=== PATIENT | female | born 1930 | race Caucasian/White ===

== ENCOUNTER 2018-01-20 22:46 | Inpatient (IN) | payer MEDICARE, OTHER ==
[2018-01-21] MEDS ORDERED: Acetaminophen 500 MG TAB ONE (00:25)
[2018-01-21] MEDS ORDERED: Sodium Chloride 0.9% 1,000 ML IV SCH (01:30)
[2018-01-21 02:12] VITALS: BMI 24.5
[2018-01-21] MEDS ORDERED: hydrALAZINE 20 MG/ML VIAL SLOW IVP PRN (02:54)
[2018-01-21] MEDS ORDERED: Calcium Carbonate 500 MG ChewTAB PO PRN (02:55)
[2018-01-21] MEDS ORDERED: Ondansetron ODT 4 MG TAB PO PRN (02:55)
[2018-01-21] MEDS ORDERED: Ondansetron HCl/PF 4 MG/2 ML Vial IVP PRN (02:55)
[2018-01-21] MEDS ORDERED: Senokot 8.6 MG TAB PO PRN (02:55)
--- NOTE | 2018-01-21 04:48 | HP ---
DATE OF ADMISSION: 01/21/2018 The patient was seen and examined on 01/20/2018. PRIMARY CARE PHYSICIAN: Dr. Dejesus at [facility]. Please note that this physician recently retired per patient report. PRIMARY ONCOLOGIST: Dr. Mcwilliams. CHIEF COMPLAINT: Generalized weakness. HISTORY OF PRESENT ILLNESS: Patient is an 87-year-old female with lymphoma, currently on chemotherap y, who presented to the emergency room at [facility]. She was transferred to this facility for hos pital admission. Over the last 24-48 hours, patient has been progressively feeling generally weak. She fell earlier t gary on her dog bed. She had some bruising over the right elbow. She denies any syncope or head inj ury. She felt feverish; however, did not check her temperature. No dysuria, hematuria, urgency, hea dache, altered mentation, back pain, skin rash, cough, shortness of breath, wheezing, nausea, vomitin g, or diarrhea reported. In the emergency room, her initial vital signs showed temperature 101.2, respirations 20, pulse rate of 93 with blood pressure of 151/57. She received vancomycin and cefepime with IV fluids and Tylenol in the emergency room. Blood culture, urinalysis, urine cultures were sent. PAST MEDICAL HISTORY: 1. Hypertension. 2. History of colon cancer, status post surgery and chemotherapy in the year 1999. 3. Lymphoma, currently on chemotherapy, last chemotherapy approximately 1 week ago. PAST SURGICAL HISTORY: 1. Tonsillectomy. 2. Surgery. 3. Right carotid artery surgery in 2015. 4. Colon surgery in 1999. ALLERGIES: Patient is allergic to IODINE, PROTONIX. SOCIAL HISTORY: Patient currently lives at home with her family. No smoking, alcohol, or drug use. She makes her own decision with the help of her family. She is FULL CODE. FAMILY HISTORY: Negative for premature coronary artery disease. REVIEW OF SYSTEMS: The following complete review of systems was negative, unless otherwise mentioned in the HPI or below: Constitutional: Weight loss or gain, ability to conduct usual activities. Sk in: Rash, itching. Eyes: Double vision, pain. ENT/Mouth: Nose bleeding, neck stiffness, pain, te nderness. Cardiovascular: Palpitations, dyspnea on exertion, orthopnea. Respiratory: Shortness of breath, wheezing, cough, hemoptysis, fever or night sweats. Gastrointestinal: Poor appetite, abdom inal pain, heartburn, nausea, vomiting, constipation, or diarrhea. Genitourinary: Urgency, frequenc y, dysuria, nocturia. Musculoskeletal: Pain, swelling. Neurologic/Psychiatric: Anxiety, depressio n. Allergy/Immunologic: Skin rash, bleeding tendency. PHYSICAL EXAMINATION: VITAL SIGNS: As discussed above. GENERAL: An 87-year-old female with fever, chills, and generalized weakness. Ill-appearing. HEENT: Head atraumatic, normocephalic. Sclerae are anicteric. Dry mucous membranes. No oral lesio n. NECK: Supple. No JVD appreciated. No carotid bruit. LUNGS: Clear to auscultation bilaterally. No wheezing, rales, or rhonchi. HEART: S1, S2 present. Regular rate and rhythm. No murmur, rubs, or gallops appreciated. ABDOMEN: Soft, nontender, bowel sounds present. EXTREMITIES: No edema or calf tenderness. NEUROLOGIC: Grossly nonfocal, moves all four extremities. PSYCHIATRY: Alert, awake, oriented x3. SKIN: Warm and dry. LYMPH NODES: No palpable lymph nodes in the neck. PERIPHERAL VASCULAR: Radial pulses palpable bilaterally. MUSCULOSKELETAL: No joint swelling or tenderness. LABORATORY AND DIAGNOSTIC FINDINGS: Chest x-ray by my review was negative for infiltrate. MediPort was noted. WBC count was 0.1 with hemoglobin 9.8, hematocrit 25.8, platelet of 14. Chemistries show ed sodium 137, potassium 3.9, chloride 101, bicarbonate 25, BUN 14, creatinine 0.71. Lactic acid 2.5 . Urinalysis was negative for wbc, bacteria. IMPRESSION: 1. Sepsis with acute organ dysfunction/neutropenic fever. Source is unclear. 2. Pancytopenia, probably secondary to chemotherapy. 3. Lactic acidosis secondary to dehydration and sepsis. 4. Chronic kidney disease, stage 2. 5. Hypertension. 6. Lymphoma, currently on chemotherapy. 7. History of colon cancer. 8. Hypertension. PLAN: The patient will be monitored in the oncology unit. We will continue vancomycin and cefepime. We will consult Infectious Disease as well as Oncology. We will adjust vancomycin dose with close monitoring. We will hold amlodipine due to blood pressure of 123/55. IV fluids. Antibiotics. Plan of care was discussed with the patient in detail. She stated understanding.
[2018-01-21 06:01] LABS: Lactic Acid 1.4 mmol/L (0.5-2.2)
[2018-01-21 06:05] LABS: Hemoglobin 8.8 g/dL (12.0-16.0); Mean Corpuscular HGB CONC 35.7 g/dL (32.0-36.0); Mean Corpuscular Hemoglobin 36.4 pg (27.0-31.0); Mean Platelet Volume 11.6 fL (7.4-10.4); Platelet Count 13 thou/uL (130-400); RBC Distribution Width 11.8 % (11.5-14.5); Red Blood Cell (RBC) Count 2.42 mill/uL (4.20-5.40); White Blood Cell (WBC) Count 0.2 thou/uL (4.8-10.8)
[2018-01-21 06:07] LABS: ALT (SGPT) 14 U/L (8-55); AST (SGOT) 13 U/L (5-34); Albumin 3.1 g/dL (3.4-4.8); Alkaline Phosphatase 56 U/L (40-150); Anion Gap 9 mmol/L (10-20); BUN (Urea Nitrogen) 15 mg/dL (9.8-20.1); Bilirubin, Total 0.6 mg/dL (0.2-1.2); Calc. Creatinine Clearance 54 mL/min (70-130); Calcium 8.5 mg/dL (7.8-10.44); Carbon Dioxide 26 mmol/L (23-31); Chloride 105 mmol/L (98-107); Estimated GFR-MDRD 75; Globulin 2.1 g/dL (2.4-3.5); Glucose 160 mg/dL (83-110); Magnesium 1.7 mg/dL (1.6-2.6); Protein, Total 5.2 g/dL (6.0-8.3); Sodium 136 mmol/L (136-145)
[2018-01-21 06:14] LABS: PLT Morphology Comment Appears Decreased; Reflex for Review?? NO
[2018-01-21] MEDS ORDERED: Cefepime 2 GM in Sodium Chloride 0.9% 100 ML IVPB SCH (06:30)
[2018-01-21] MEDS: Amlodipine 5 MG TAB PO SCH ×2 (08:57→22:46)
[2018-01-21] MEDS: Docusate 100 MG CAP PO SCH ×2 (08:58→22:42)
[2018-01-21] MEDS: Famotidine 20 MG TAB PO SCH (08:58)
--- NOTE | 2018-01-21 11:43 | PDOC.PN ---
- Subjective Encounter Start Date: 01/21/18 Encounter Start Time: 07:00 Pt wilmar for followup re: sepsis. Denies chest pain, shortness of breath. Has occasional cough. Fever+ - Objective Resuscitation Status: Resuscitation Status FULL:Full Resuscitation MAR Reviewed: Yes Vital Signs & Weight: Vital Signs (12 hours) Temp Pulse Resp BP BP BP Pulse Ox 01/21/18 11:24 100.3 F H 84 14 166/67 H 98 01/21/18 08:57 79 131/58 L 01/21/18 08:03 141/83 H 01/21/18 08:00 98.4 F 79 18 131/58 L 97 01/21/18 03:35 97.9 F 73 18 99/49 L 98 01/21/18 02:55 98 01/21/18 01:17 99.3 F 92 20 98 01/21/18 01:05 99.3 F 92 20 123/55 L 98 Weight Weight 138 lb 14.259 oz Result Diagrams: 01/21/18 05:20 01/21/18 05:20 Additional Labs: Labs reviewed by me Phys Exam - Physical Examination Constitutional: NAD HEENT: moist MMs, sclera anicteric, oral pharynx no lesions, 2+ tonsils Neck: supple Respiratory: no wheezing, no rales, no rhonchi, clear to auscultation bilateral Cardiovascular: RRR, no rub S1, S2 Gastrointestinal: soft, non-tender, no distention, positive bowel sounds Neurological: moves all 4 limbs Psychiatric: normal affect, A&O x 3 Dx/Plan (1) Sepsis Code(s): A41.9 - SEPSIS, UNSPECIFIED ORGANISM Status: Acute Comment: secondary to neutropenic fever. (2) Neutropenic fever Code(s): D70.9 - NEUTROPENIA, UNSPECIFIED; R50.81 - FEVER PRESENTING WITH CONDITIONS CLASSIFIED ELSEWHERE Status: Acute Comment: Continue empiric antibiotics, follow cultures (3) Pancytopenia Code(s): D61.818 - OTHER PANCYTOPENIA Status: Acute Comment: due to chemotherapy 1 week ago (4) HTN (hypertension) Code(s): I10 - ESSENTIAL (PRIMARY) HYPERTENSION Status: Chronic Comment: Resume home medications, monitor vital signs and titrate antihypertensives as needed. (5) Lymphoma Status: Chronic Comment: chemotherapy 1 week ago - Plan continue antibiotics, out of bed/ambulate, DVT proph w/SCDs * . Review of Systems - Review of Systems Constitutional: fever. negative: chills, sweats, weakness, malaise Respiratory: Cough, Dry. negative: Shortness of Breath, Hemoptysis, SOB with Excertion, Pleuritic Pain, Sputum, Wheezing Cardiovascular: negative: chest pain, palpitations, orthopnea, paroxysmal nocturnal dyspnea, edema, light headedness Gastrointestinal: negative: Nausea, Vomiting, Abdominal Pain, Diarrhea, Constipation, Melena, Hematochezia Genitourinary: negative: Dysuria, Frequency, Incontinence, Hematuria, Retention - Medications/Allergies Allergies/Adverse Reactions: Allergies Allergy/AdvReac Type Severity Reaction Status Date / Time iodine Allergy Verified 01/21/18 01:57 pantoprazole [From Protonix] Allergy Verified 01/21/18 01:57 povidone-iodine Allergy Verified 01/21/18 01:57 [From Betadine] soap [From Betadine] Allergy Verified 01/21/18 01:57 Medications: Current Medications Acetaminophen (Tylenol) 650 mg PO Q4H PRN PRN Reason: Headache/Fever or Mild Pain Last Admin: 01/21/18 12:17 Dose: 650 mg Amlodipine Besylate (Norvasc) 5 mg PO BID [facility] Last Admin: 01/21/18 08:57 Dose: 5 mg Benzonatate (Tessalon) 100 mg PO TID [facility] Calcium Carbonate (Tums) 1,000 mg PO Q4H PRN PRN Reason: Heartburn or Indigestion Docusate Sodium (Colace) 100 mg PO BID [facility] Last Admin: 01/21/18 08:58 Dose: Not Given Famotidine (Pepcid) 20 mg PO DAILY [facility] Last Admin: 01/21/18 08:58 Dose: Not Given Hydralazine HCl (Apresoline) 5 mg SLOW IVP Q4H PRN PRN Reason: SBP Greater Than 180 Vancomycin HCl 1 gm/ Device 200 mls @ 200 mls/hr IVPB 2000 CONNIE Cefepime HCl 2 gm/ Sodium (Chloride) 100 mls @ 200 mls/hr IVPB 1830 CONNIE Ibuprofen (Motrin) 400 mg PO Q6H PRN PRN Reason: Pain/fever Miscellaneous Medication (Pharmacy To Dose) 1 each IVPB ONE PRN PRN Reason: Pharmacy to dose Stop: 01/31/18 00:39 Ondansetron HCl (Zofran Odt) 4 mg PO Q6H PRN PRN Reason: Nausea/Vomiting Ondansetron HCl (Zofran) 4 mg IVP Q6H PRN PRN Reason: Nausea/Vomiting Senna (Senokot) 2 tab PO HSPRN PRN PRN Reason: Constipation
[2018-01-21] MEDS: Acetaminophen 325 MG TAB PO PRN ×2 (12:17→22:34)
[2018-01-21] MEDS: Benzonatate 100 MG CAP PO SCH ×2 (13:51→22:33)
--- NOTE | 2018-01-21 17:10 | CON ---
DATE OF CONSULTATION: 01/21/2018 REASON FOR CONSULTATION: Neutropenia with fever. HISTORY OF PRESENT ILLNESS: An 87-year-old first admission to this hospital who has a history of darlin rly recently diagnosed lymphoma. Apparently, the patient had a bone marrow. She denied that she james r had a lymph node biopsy, so it is not clear how the lymphoma diagnosis was established, if through bone marrow or peripheral blood flow cytometry or needle aspirate. She does not recall any such proc edure. Nonetheless, patient has been receiving chemotherapy through a port inserted in [place] by a surgeon at the beginning of this treatment, she has received I think is the fourth course of chemo therapy and apparently fell down and was brought to the emergency room where she was found to be febr ile and somewhat hypotensive, was transferred over here for further management. On arrival, BP 150/7 0, pulse 93 and temperature 101.2, respirations 20. She did not appear in distress. Lungs and heart exam were normal. Abdomen is nontender. Port site was not abnormal. Chest x-ray with no evidence of infiltrates. WBC count 0.1, hemoglobin 9.8, platelets 14, creatinine was 0.71. Lactic acid 2.5. The patient has been started on cefepime and vancomycin. REVIEW OF SYSTEMS: Currently, she is awake and alert. Denies headaches, visual symptoms, sore throa t, odynophagia, dysphagia, no back pain, no port pain. No other joint symptoms. A little bit of cou gh which is mostly dry. No chest pain, no dyspnea, no abdominal pain or diarrhea, no genitourinary s ymptoms. No neurological symptoms. PAST MEDICAL HISTORY: Colon cancer in remission after resection and chemotherapy. Currently managed lymphoma with chemotherapy. It is not clear what the cell type and stage and also hypertension. PAST SURGICAL HISTORY: Tonsillectomy, carotid artery, endarterectomy and partial colon resection in 1999. ALLERGIES: IODINE and PROTONIX. SOCIAL HISTORY: Lives at [place]. She is retired from [employer], fairly independent living conditions until this. Never smoker. FAMILY HISTORY: Noncontributory. PHYSICAL EXAMINATION: VITAL SIGNS: T-max 100.3, currently 98.4, BP 120/58, pulse 88, respirations 14-20, O2 saturation 98% . SKIN: Examination shows the port site without any inflammatory changes. Port is accessed at this ti me. No Truong catheter. Patient is voiding spontaneously. No lymphadenopathy alopecia from chemothe rapy. HEENT: Ocular movements conjugate. Pale Conjunctivae noninjected. Ear and NOSE: Normal. Oral cav ity unremarkable. NECK: Supple. LUNGS: With symmetric clear breath sounds. CARDIOVASCULAR: S1, S2, regular rate. No S3, S4. ABDOMEN: Soft and not distended or tender. No ascites. No bladder distention. No organomegaly. EXTREMITIES: No joint inflammatory activity. Pulses 1+ dorsalis pedis. Plantar responses are flexu re, moves all extremities equally. NEUROLOGIC: Cognitive function appears to be intact. LABORATORY DATA: White cell count 0.2, hemoglobin 8.8, MCV 102, platelets 13,000 and chemistry fairl y unremarkable. Phosphorus 2.0. Liver profile normal. Albumin 3.1 and all the cultures are pending . ASSESSMENT: Lymphoma, on treatment with unknown regimen through a port now with neutropenic fever. The patient has little bit of cough, but no infiltrates seen on the x-ray. DISCUSSION: The most likely scenario is respiratory tract infection associated with neutropenia. Co ntinue cefepime and vancomycin. I do not expect a protracted course should it respond quickly as robyn n as the white cell count started going up, should see a resolution of temperature increases. If the blood cultures remain negative, then could transition to oral antimicrobial therapy, either quinolon e or a beta lactam for discharge planning at that time and the other hand, if things continue to comp licate, then we will have to reassess maybe start antifungal therapy and so on.
[2018-01-21] MEDS: Cefepime 2 GM in Sodium Chloride 0.9% 100 ML IVPB SCH (18:28)
[2018-01-21 18:52] LABS: Vancomycin, Trough 4.1 ug/mL
[2018-01-21] MEDS ORDERED: Vancomycin HCl 1 GM in Premix Bag 1 BAG IVPB SCH ×2 (20:00→23:00)
[2018-01-21] MEDS: Diabetic Tussin 200 MG/10 ML UDCUP PO PRN (22:24)
[2018-01-21] MEDS: Ibuprofen 200 MG TAB PO PRN (22:38)
--- NOTE | 2018-01-22 01:31 | CON ---
DATE OF ADMISSION: 01/21/2018 DATE OF CONSULTATION: 01/21/2018 HISTORY OF PRESENT ILLNESS: Ms. Keller is an 87-year-old female with a long history of lymphoma being t reated by Dr. Mckinney out of [place] with chemotherapy. She is unsure of the name of the chemothera py, but she says she received her last cycle approximately 1 week ago. She was at home prior to this admission and leaned over to help her dog do something and she fell. She had bruising and bleeding of her right elbow and was transferred to the emergency room. She did report feeling quite weak, but she did not feel feverish. She was noted to have a temperature of 101 in the emergency room and was transferred here for febrile neutropenia. She has not had fever while she has been in the hospital. She is feeling much stronger since getting IV fluids and IV antibiotics. She denies shortness of b reath and otherwise feels much better. PAST MEDICAL HISTORY: 1. Lymphoma, recent chemotherapy, I am not sure what type of lymphoma she has. 2. Hypertension. 3. History of colorectal cancer status post surgery, chemotherapy, and radiation in 1999. CURRENT MEDICATIONS: 1. Tylenol p.r.n. 2. Norvasc 5 mg p.o. b.i.d. and 10 mg p.o. q. day. 3. Tessalon 100 mg p.o. t.i.d. 4. Tums 1000 mg p.o. q.4 hours. 5. Cefepime 2 grams IV q.8 hours. 6. Colace p.r.n. 7. Pepcid 20 mg p.o. q. day. 8. Hydralazine p.r.n. 9. Ibuprofen 400 mg p.o. q.6 hours p.r.n. 10. Zofran 4 mg p.o. q.6 hours p.r.n. 11. Senokot p.r.n. 12. Vancomycin 1 gram IV q.12 hours. ALLERGIES: IODINE, PANTOPRAZOLE, and SOAP. SOCIAL HISTORY: She lives in [place]. Denies tobacco or alcohol use. She is here alone. FAMILY HISTORY: Negative. REVIEW OF SYSTEMS: Otherwise, 10-point review of systems is negative and she was tolerated the chemo therapy well. PHYSICAL EXAMINATION: VITAL SIGNS: Temperature 98.3, T-max 100.3, pulse 85, respirations 14, O2 sat 93%-98% on room air, b lood pressure 122/56. GENERAL: She is quite pleasant, in no acute distress. HEENT: Extraocular muscles are intact. Pupils reactive to light. She has no oral cavity lesions. NECK: Supple. She does have a right lower cervical 3 cm lymph node which is palpable. CARDIOVASCULAR: Regular rhythm. LUNGS: Clear to auscultation bilaterally. ABDOMEN: Hypoactive bowel sounds. Soft, nontender, nondistended. EXTREMITIES: No edema. LABORATORY DATA: White blood cell count 0.2, hemoglobin 8.8, platelets 13,000. Sodium 136, potassiu m 4.0, chloride 105, CO2 of 26, BUN 15, creatinine 0.7, glucose 160, calcium 8.5, phos 2.0, mag 1.7, albumin 3.1. Cultures are pending. ASSESSMENT: Ms. Keller is a 87-year-old female with lymphoma and 1. Febrile neutropenia. 2. Thrombocytopenia. 3. Weakness status post fall. PLAN: 1. We discussed that her blood counts are too low for her to currently be discharged, but surely the y will start to rise in the next few days. I am not sure if she got any last, we will hope to get [facility] records to find out what growth factor she has had. 2. We will give her a platelet transfusion if she has not already had one. 3. She is on cefepime and vancomycin, these will be continued. 4. We will check her Norvasc dose. 5. Follow up blood and urine cultures.
[2018-01-22] MEDS: guaiFENesin/Codeine Phosphate 200 mg/20 mg 10 ml UD Cup PO PRN ×2 (03:18→15:12)
[2018-01-22 04:04] LABS: White Blood Cell (WBC) Count 0.4 thou/uL (4.8-10.8)
[2018-01-22 04:05] LABS: Hemoglobin 7.1 g/dL (12.0-16.0); Mean Corpuscular HGB CONC 36.5 g/dL (32.0-36.0); Mean Corpuscular Hemoglobin 36.9 pg (27.0-31.0); Platelet Count 33 thou/uL (130-400); RBC Distribution Width 11.4 % (11.5-14.5); Red Blood Cell (RBC) Count 1.91 mill/uL (4.20-5.40)
[2018-01-22 04:06] LABS: PLT Morphology Comment Appears Decreased; RBC Morphology Normal
[2018-01-22 04:11] LABS: ALT (SGPT) 21 U/L (8-55); AST (SGOT) 22 U/L (5-34); Albumin 2.9 g/dL (3.4-4.8); Alkaline Phosphatase 83 U/L (40-150); Anion Gap 10 mmol/L (10-20); BUN (Urea Nitrogen) 12 mg/dL (9.8-20.1); Bilirubin, Total 0.9 mg/dL (0.2-1.2); Calc. Creatinine Clearance 58 mL/min (70-130); Calcium 8.6 mg/dL (7.8-10.44); Carbon Dioxide 24 mmol/L (23-31); Chloride 104 mmol/L (98-107); Estimated GFR-MDRD 82; Globulin 2.3 g/dL (2.4-3.5); Glucose 135 mg/dL (83-110); Magnesium 1.4 mg/dL (1.6-2.6); Protein, Total 5.2 g/dL (6.0-8.3); Sodium 135 mmol/L (136-145)
[2018-01-22 04:28] LABS: Phosphorus 1.8 mg/dL (2.3-4.7)
[2018-01-22] MEDS: Docusate 100 MG CAP PO SCH ×2 (08:39→20:13)
[2018-01-22] MEDS: Benzonatate 100 MG CAP PO SCH ×3 (08:39→20:13)
[2018-01-22] MEDS: Amlodipine 10 MG TAB PO SCH (08:39)
[2018-01-22] MEDS: Diabetic Tussin 200 MG/10 ML UDCUP PO PRN (08:48)
--- NOTE | 2018-01-22 12:00 | PDOC.PN ---
- Subjective Encounter Start Date: 01/22/18 Encounter Start Time: 07:00 Pt seen for followup re:neutropenic fever. Denies chest pain or shortness of breath. Cough+. No fevers. - Objective Resuscitation Status: Resuscitation Status FULL:Full Resuscitation MAR Reviewed: Yes Vital Signs & Weight: Vital Signs (12 hours) Temp Pulse Resp BP Pulse Ox 01/22/18 10:20 68 16 01/22/18 08:39 84 01/22/18 08:00 97.8 F 84 18 92 L 01/22/18 07:27 97.8 F 84 18 102/44 L 92 L 01/22/18 07:25 97.8 F 84 18 102/44 L 92 L 01/22/18 06:20 66 12 01/22/18 02:51 64 16 98 Weight Weight 138 lb 14.259 oz I&O: 01/21/18 01/22/18 01/23/18 06:59 06:59 06:59 Intake Total 1550 Output Total 600 Balance 950 Result Diagrams: 01/22/18 03:40 01/22/18 03:40 Additional Labs: Labs reviewed by me Phys Exam - Physical Examination Constitutional: NAD HEENT: moist MMs, sclera anicteric, oral pharynx no lesions, 2+ tonsils pallor+ Neck: no JVD, supple, full ROM Respiratory: clear to auscultation bilateral Cardiovascular: RRR, no rub S1, S2 Gastrointestinal: soft, non-tender, no distention, positive bowel sounds Neurological: moves all 4 limbs Psychiatric: normal affect, A&O x 3 Dx/Plan (1) Neutropenic fever Code(s): D70.9 - NEUTROPENIA, UNSPECIFIED; R50.81 - FEVER PRESENTING WITH CONDITIONS CLASSIFIED ELSEWHERE Status: Acute Comment: Probable pulmonary source. Continue cefepime and vancomycin IV, follow cultures. (2) Pancytopenia Code(s): D61.818 - OTHER PANCYTOPENIA Status: Acute Comment: Due to chemotherapy 1 week ago (3) HTN (hypertension) Code(s): I10 - ESSENTIAL (PRIMARY) HYPERTENSION Status: Chronic Comment: Controlled (4) Lymphoma Status: Chronic Comment: chemotherapy 1 week ago (5) Sepsis Code(s): A41.9 - SEPSIS, UNSPECIFIED ORGANISM Status: Resolved - Plan * . Review of Systems - Review of Systems Constitutional: weakness. negative: fever, chills, sweats, malaise Respiratory: Cough, Dry. negative: Shortness of Breath, Hemoptysis, SOB with Excertion, Pleuritic Pain, Sputum, Wheezing Cardiovascular: negative: chest pain, palpitations, orthopnea, paroxysmal nocturnal dyspnea, edema, light headedness Genitourinary: Other. negative: Dysuria, Frequency, Incontinence, Hematuria, Retention Skin: negative: Rash, Lesions, Reji, Bruising - Medications/Allergies Allergies/Adverse Reactions: Allergies Allergy/AdvReac Type Severity Reaction Status Date / Time iodine Allergy Verified 01/21/18 01:57 pantoprazole [From Protonix] Allergy Verified 01/21/18 01:57 povidone-iodine Allergy Verified 01/21/18 01:57 [From Betadine] soap [From Betadine] Allergy Verified 01/21/18 01:57 Medications: Current Medications Acetaminophen (Tylenol) 650 mg PO Q4H PRN PRN Reason: Headache/Fever or Mild Pain Last Admin: 01/21/18 22:34 Dose: 650 mg Albuterol/Ipratropium (Duoneb) 3 ml NEB [id number] [facility] Last Admin: 01/22/18 10:20 Dose: 3 ml Amlodipine Besylate (Norvasc) 10 mg PO DAILY [facility] Last Admin: 01/22/18 08:39 Dose: 10 mg Benzonatate (Tessalon) 100 mg PO TID [facility] Last Admin: 01/22/18 08:39 Dose: 100 mg Calcium Carbonate (Tums) 1,000 mg PO Q4H PRN PRN Reason: Heartburn or Indigestion Docusate Sodium (Colace) 100 mg PO BID [facility] Last Admin: 01/22/18 08:39 Dose: 100 mg Famotidine (Pepcid) 20 mg PO DAILY [facility] Last Admin: 01/21/18 08:58 Dose: Not Given Guaifenesin (Robitussin Sf) 200 mg PO TIDPRN PRN PRN Reason: Cough Last Admin: 01/22/18 08:48 Dose: 200 mg Guaifenesin/Codeine Phosphate (Robitussin Ac) 5 ml PO BIDPRN PRN PRN Reason: Cough Last Admin: 01/22/18 03:18 Dose: 5 ml Hydralazine HCl (Apresoline) 5 mg SLOW IVP Q4H PRN PRN Reason: SBP Greater Than 180 Cefepime HCl 2 gm/ Sodium (Chloride) 100 mls @ 200 mls/hr IVPB 1830 CONNIE Last Admin: 01/21/18 18:28 Dose: 100 mls Vancomycin HCl 1 gm/ Device 200 mls @ 200 mls/hr IVPB 2300 [facility] Last Admin: 01/21/18 22:41 Dose: 200 mls Ibuprofen (Motrin) 400 mg PO Q6H PRN PRN Reason: Pain/fever Last Admin: 01/21/18 22:38 Dose: 400 mg Miscellaneous Medication (Pharmacy To Dose) 1 each IVPB ONE PRN PRN Reason: Pharmacy to dose Stop: 01/31/18 00:39 Miscellaneous Medication (Phos-Nak) 1 pkt PO TID [facility] Stop: 01/23/18 09:00 Last Admin: 01/22/18 08:42 Dose: 1 pkt Ondansetron HCl (Zofran Odt) 4 mg PO Q6H PRN PRN Reason: Nausea/Vomiting Ondansetron HCl (Zofran) 4 mg IVP Q6H PRN PRN Reason: Nausea/Vomiting Senna (Senokot) 2 tab PO HSPRN PRN PRN Reason: Constipation
[2018-01-22] MEDS: Potassium Chloride 20 MEQ TAB PO SCH ×2 (15:12→20:13)
[2018-01-22] MEDS: Famotidine 20 MG TAB PO SCH (15:19)
[2018-01-22] MEDS ORDERED: guaiFENesin/Codeine Phosphate 200 mg/20 mg 10 ml UD Cup PO PRN (15:25)
[2018-01-22] MEDS: Cefepime 2 GM in Sodium Chloride 0.9% 100 ML IVPB SCH (17:31)
[2018-01-22] MEDS: Acetaminophen 325 MG TAB PO PRN (17:37)
[2018-01-23] MEDS: Acetaminophen 325 MG TAB PO PRN ×2 (04:06→16:20)
[2018-01-23] MEDS: Cepastat Lozenges 1 LOZ PO PRN ×2 (04:55→12:52)
[2018-01-23 08:55] LABS: Platelet Count 24 thou/uL (130-400); White Blood Cell (WBC) Count 0.3 thou/uL (4.8-10.8)
[2018-01-23 09:03] LABS: Anion Gap 12 mmol/L (10-20); BUN (Urea Nitrogen) 9 mg/dL (9.8-20.1); Calc. Creatinine Clearance 60 mL/min (70-130); Calcium 8.5 mg/dL (7.8-10.44); Carbon Dioxide 23 mmol/L (23-31); Chloride 105 mmol/L (98-107); Estimated GFR-MDRD 85; Glucose 134 mg/dL (83-110); Potassium 4.3 mmol/L (3.5-5.1); Sodium 136 mmol/L (136-145)
[2018-01-23] MEDS: Amlodipine 10 MG TAB PO SCH (09:12)
[2018-01-23] MEDS: Docusate 100 MG CAP PO SCH ×3 (09:13→20:30)
[2018-01-23] MEDS: Benzonatate 100 MG CAP PO SCH ×3 (09:13→20:30)
[2018-01-23] MEDS: Famotidine 20 MG TAB PO SCH (09:14)
[2018-01-23 09:18] LABS: Hemoglobin 7.8 g/dL (12.0-16.0); Mean Corpuscular HGB CONC 35.4 g/dL (32.0-36.0); Mean Corpuscular Hemoglobin 36.5 pg (27.0-31.0); Mean Platelet Volume 9.9 fL (7.4-10.4); RBC Distribution Width 11.7 % (11.5-14.5); Red Blood Cell (RBC) Count 2.14 mill/uL (4.20-5.40)
[2018-01-23 09:47] LABS: MDiff Complete? YES; PLT Morphology Comment Appears Decreased; Polychromasia SLIGHT = 2-3 cells (100X) (0-2/hpf)
--- NOTE | 2018-01-23 11:49 | PDOC.PN ---
- Subjective Encounter Start Date: 01/23/18 Encounter Start Time: 07:00 Pt seen for followup re: febrile neutropenia. Denies chest pain. Cough better. - Objective Resuscitation Status: Resuscitation Status FULL:Full Resuscitation MAR Reviewed: Yes Vital Signs & Weight: Vital Signs (12 hours) Temp Pulse Resp BP Pulse Ox 01/23/18 11:19 76 12 01/23/18 09:12 76 01/23/18 08:13 75 12 01/23/18 08:00 98 F 76 18 01/23/18 07:30 98.0 F 76 18 107/54 L 97 01/23/18 03:57 98.9 F 90 16 115/82 97 01/23/18 02:42 97 01/23/18 02:07 12 Weight Weight 138 lb 14.259 oz I&O: 01/22/18 01/23/18 01/24/18 06:59 06:59 06:59 Intake Total 1550 1690 Output Total 600 Balance 950 1690 Result Diagrams: 01/23/18 08:35 01/23/18 08:35 Additional Labs: labs reviewed by me Phys Exam - Physical Examination Constitutional: NAD HEENT: moist MMs, sclera anicteric, oral pharynx no lesions, 2+ tonsils Neck: supple Respiratory: no wheezing, no rales, no rhonchi, clear to auscultation bilateral Cardiovascular: RRR, no rub S1, S2 Gastrointestinal: soft, non-tender, no distention, positive bowel sounds Neurological: moves all 4 limbs Psychiatric: normal affect, A&O x 3 Dx/Plan (1) Neutropenic fever Code(s): D70.9 - NEUTROPENIA, UNSPECIFIED; R50.81 - FEVER PRESENTING WITH CONDITIONS CLASSIFIED ELSEWHERE Status: Acute Comment: Continue cefepime and vancomycin IV, follow cultures. (2) Pancytopenia Code(s): D61.818 - OTHER PANCYTOPENIA Status: Acute Comment: Follow blood counts (3) HTN (hypertension) Code(s): I10 - ESSENTIAL (PRIMARY) HYPERTENSION Status: Chronic Comment: Controlled (4) Lymphoma Status: Chronic Comment: s/p chemotherapy at [place] (5) Sepsis Code(s): A41.9 - SEPSIS, UNSPECIFIED ORGANISM Status: Resolved - Plan * . Review of Systems - Review of Systems Constitutional: negative: fever, chills, sweats, weakness, malaise Respiratory: Cough, Dry. negative: Shortness of Breath, Hemoptysis, Pleuritic Pain, Sputum, Wheezing Cardiovascular: negative: chest pain, palpitations, edema, light headedness Gastrointestinal: negative: Nausea, Vomiting, Abdominal Pain, Diarrhea, Constipation, Melena, Hematochezia Genitourinary: negative: Dysuria, Frequency, Incontinence, Hematuria, Retention Skin: negative: Rash, Lesions, Reji, Bruising - Medications/Allergies Allergies/Adverse Reactions: Allergies Allergy/AdvReac Type Severity Reaction Status Date / Time iodine Allergy Verified 01/21/18 01:57 pantoprazole [From Protonix] Allergy Verified 01/21/18 01:57 povidone-iodine Allergy Verified 01/21/18 01:57 [From Betadine] soap [From Betadine] Allergy Verified 01/21/18 01:57 Medications: Current Medications Acetaminophen (Tylenol) 650 mg PO Q4H PRN PRN Reason: Headache/Fever or Mild Pain Last Admin: 01/23/18 04:06 Dose: 650 mg Albuterol/Ipratropium (Duoneb) 3 ml NEB [id number] [facility] Last Admin: 01/23/18 11:19 Dose: 3 ml Amlodipine Besylate (Norvasc) 10 mg PO DAILY [facility] Last Admin: 01/23/18 09:12 Dose: 10 mg Benzonatate (Tessalon) 100 mg PO TID [facility] Last Admin: 01/23/18 09:13 Dose: 100 mg Calcium Carbonate (Tums) 1,000 mg PO Q4H PRN PRN Reason: Heartburn or Indigestion Docusate Sodium (Colace) 100 mg PO BID [facility] Last Admin: 01/23/18 09:13 Dose: Not Given Famotidine (Pepcid) 20 mg PO DAILY [facility] Last Admin: 01/23/18 09:14 Dose: 20 mg Guaifenesin (Robitussin Sf) 200 mg PO TIDPRN PRN PRN Reason: Cough Last Admin: 01/22/18 08:48 Dose: 200 mg Guaifenesin (Mucinex) 600 mg PO Q12HR [facility] Guaifenesin/Codeine Phosphate (Robitussin Ac) 10 ml PO Q6H PRN PRN Reason: Cough Hydralazine HCl (Apresoline) 5 mg SLOW IVP Q4H PRN PRN Reason: SBP Greater Than 180 Cefepime HCl 2 gm/ Sodium (Chloride) 100 mls @ 200 mls/hr IVPB 1830 [facility] Last Admin: 01/22/18 17:31 Dose: 100 mls Ibuprofen (Motrin) 400 mg PO Q6H PRN PRN Reason: Pain/fever Last Admin: 01/21/18 22:38 Dose: 400 mg Ondansetron HCl (Zofran Odt) 4 mg PO Q6H PRN PRN Reason: Nausea/Vomiting Ondansetron HCl (Zofran) 4 mg IVP Q6H PRN PRN Reason: Nausea/Vomiting Senna (Senokot) 2 tab PO HSPRN PRN PRN Reason: Constipation Throat Lozenges (Cepastat Lozenges) 1 charmaine PO Q2H PRN PRN Reason: SORE THROAT/ COUGH Last Admin: 01/23/18 04:55 Dose: 1 charmaine
[2018-01-23] MEDS ORDERED: guaiFENesin ER 600 MG TAB PO SCH (12:45)
--- NOTE | 2018-01-23 14:19 | PRG ---
DATE OF SERVICE: 01/23/2018 SUBJECTIVE: Coughing more frequently than previously. No sputum production. No headaches, no chest pain, no abdominal pain or diarrhea. No neurological symptoms. OBJECTIVE: VITAL SIGNS: T-max 98.9, BP 120/58, pulse 95, respirations 18, O2 sat 92%. GENERAL: Chronically ill appearing, in no distress, oriented. HEENT: Ocular movements conjugate. Pale conjunctivae. LUNGS: With quite prominent inspiratory crackles, right and left base. CARDIOVASCULAR: S1, S2, regular rate without murmurs. ABDOMEN: Soft and not distended or tender. LABORATORY DATA: White cell count 0.3, hemoglobin 7.8, MCV 103, platelets 24. Sodium 136, creatinin e 0.66 and we have 1 set out of 2 positive with E. coli from blood cultures obtained from 01/20/2018. The organism is resistant to quinolones, susceptible to cephalosporins. Urine culture, no growth a t 48 hours. ASSESSMENT AND DISCUSSION: Lymphoma, on treatment with chemotherapy through [place], now with neutropen ia and fever and Escherichia coli bacteremia, appears to be transient bacteremia. Now, she has abnor mal lung exam. This could be secondary to the bacteremia either from direct infection or from just c apillary leak and interstitial infiltrates. We will repeat chest x-ray. Continue cefepime. Wait fo r recovery of white cell count. The origin of the bacteremia could be gastrointestinal tract or resp iratory tract, urinary tract or biliary tract not likely.
--- NOTE | 2018-01-23 15:15 | RAD ---
CHEST 1 VIEW: HISTORY: Neutropenia. Abnormal breath sounds. COMPARISON: 01/20/18. FINDINGS: Cardiac silhouette is magnified and upper limits of normal in size. Pulmonary vasculature upper limi ts of normal. Mediastinum is midline with aortic calcification and a right-sided Port-A-Cath in plac e. No lobar consolidation or evidence of pneumothorax. IMPRESSION: 1. Borderline pulmonary vascular congestion. 2. Atherosclerosis. POS: [facility]
[2018-01-23] MEDS: Cefepime 2 GM in Sodium Chloride 0.9% 100 ML IVPB SCH (19:09)
[2018-01-23] MEDS: guaiFENesin ER 600 MG TAB PO SCH (20:31)
[2018-01-24 04:46] LABS: Anion Gap 11 mmol/L (10-20); BUN (Urea Nitrogen) 10 mg/dL (9.8-20.1); Calc. Creatinine Clearance 63 mL/min (70-130); Calcium 8.6 mg/dL (7.8-10.44); Carbon Dioxide 24 mmol/L (23-31); Chloride 103 mmol/L (98-107); Estimated GFR-MDRD 89; Glucose 109 mg/dL (83-110); Potassium 4.4 mmol/L (3.5-5.1); Sodium 134 mmol/L (136-145)
[2018-01-24 04:53] LABS: White Blood Cell (WBC) Count 0.4 thou/uL (4.8-10.8)
[2018-01-24 05:41] LABS: Hemoglobin 7.6 g/dL (12.0-16.0); MDiff Complete? YES; Macrocytosis SLIGHT = 6-15 cells (100X) (0-5/hpf); Mean Corpuscular HGB CONC 35.2 g/dL (32.0-36.0); Mean Corpuscular Hemoglobin 36.3 pg (27.0-31.0); Mean Platelet Volume 9.4 fL (7.4-10.4); PLT Morphology Comment Appears Decreased; Platelet Count 56 thou/uL (130-400); RBC Distribution Width 11.9 % (11.5-14.5); Red Blood Cell (RBC) Count 2.08 mill/uL (4.20-5.40)
[2018-01-24] MEDS: guaiFENesin ER 600 MG TAB PO SCH ×4 (08:32→20:19)
[2018-01-24] MEDS: Famotidine 20 MG TAB PO SCH (08:32)
[2018-01-24] MEDS: Benzonatate 100 MG CAP PO SCH ×3 (08:32→20:20)
[2018-01-24] MEDS: Docusate 100 MG CAP PO SCH ×2 (08:33→20:19)
[2018-01-24] MEDS: Amlodipine 10 MG TAB PO SCH (08:33)
--- NOTE | 2018-01-24 11:00 | PDOC.PN ---
- Subjective Encounter Start Date: 01/24/18 Encounter Start Time: 07:20 Pt seen for followup re: febrile neutropenia. Cough improved with Mucinex. No fevers or chills. - Objective Resuscitation Status: Resuscitation Status FULL:Full Resuscitation MAR Reviewed: Yes Vital Signs & Weight: Vital Signs (12 hours) Temp Pulse Resp BP Pulse Ox 01/24/18 08:33 85 01/24/18 08:00 98.9 F 85 16 01/24/18 07:25 98.9 F 85 16 113/55 L 96 01/24/18 06:27 78 16 01/24/18 03:32 99.8 F H 97 16 122/60 97 01/24/18 02:31 12 01/24/18 00:46 96 01/23/18 23:38 98.7 F 87 16 107/55 L 97 Weight Weight 138 lb 14.259 oz I&O: 01/23/18 01/24/18 01/25/18 06:59 06:59 06:59 Intake Total 1690 1986 Balance 1690 1986 Result Diagrams: 01/24/18 03:52 01/24/18 03:52 Additional Labs: Labs reviewed by me Phys Exam - Physical Examination Constitutional: NAD HEENT: moist MMs, sclera anicteric, oral pharynx no lesions, 2+ tonsils Neck: no nodes, no JVD, supple, full ROM Respiratory: no wheezing, no rhonchi R basal crackles Cardiovascular: RRR, no rub S1, S2 Gastrointestinal: soft, non-tender, no distention, positive bowel sounds Neurological: moves all 4 limbs Psychiatric: normal affect, A&O x 3 Dx/Plan (1) Neutropenic fever Code(s): D70.9 - NEUTROPENIA, UNSPECIFIED; R50.81 - FEVER PRESENTING WITH CONDITIONS CLASSIFIED ELSEWHERE Status: Acute Comment: Continue IV cefepime (2) Pancytopenia Code(s): D61.818 - OTHER PANCYTOPENIA Status: Acute Comment: Follow blood counts (3) HTN (hypertension) Code(s): I10 - ESSENTIAL (PRIMARY) HYPERTENSION Status: Chronic Comment: Controlled and at goal (4) Lymphoma Status: Chronic Comment: s/p chemotherapy at [place], await records (5) Sepsis Code(s): A41.9 - SEPSIS, UNSPECIFIED ORGANISM Status: Resolved - Plan * . Review of Systems - Review of Systems Constitutional: negative: fever, chills, sweats, weakness, malaise Respiratory: Cough, Dry. negative: Shortness of Breath, SOB with Excertion, Pleuritic Pain, Sputum, Wheezing Cardiovascular: negative: chest pain, palpitations, orthopnea, paroxysmal nocturnal dyspnea, edema, light headedness Gastrointestinal: negative: Nausea, Vomiting, Abdominal Pain, Diarrhea, Constipation, Melena, Hematochezia Genitourinary: negative: Dysuria, Frequency, Incontinence, Hematuria, Retention Skin: negative: Rash, Lesions, Reji, Bruising - Medications/Allergies Allergies/Adverse Reactions: Allergies Allergy/AdvReac Type Severity Reaction Status Date / Time iodine Allergy Verified 01/21/18 01:57 pantoprazole [From Protonix] Allergy Verified 01/21/18 01:57 povidone-iodine Allergy Verified 01/21/18 01:57 [From Betadine] soap [From Betadine] Allergy Verified 01/21/18 01:57 Medications: Current Medications Acetaminophen (Tylenol) 650 mg PO Q4H PRN PRN Reason: Headache/Fever or Mild Pain Last Admin: 01/23/18 16:20 Dose: 650 mg Albuterol/Ipratropium (Duoneb) 3 ml NEB [id number] [facility] Last Admin: 01/24/18 06:27 Dose: 3 ml Amlodipine Besylate (Norvasc) 10 mg PO DAILY [facility] Last Admin: 01/24/18 08:33 Dose: 10 mg Benzonatate (Tessalon) 100 mg PO TID [facility] Last Admin: 01/24/18 08:32 Dose: 100 mg Calcium Carbonate (Tums) 1,000 mg PO Q4H PRN PRN Reason: Heartburn or Indigestion Docusate Sodium (Colace) 100 mg PO BID [facility] Last Admin: 01/24/18 08:33 Dose: 100 mg Famotidine (Pepcid) 20 mg PO DAILY [facility] Last Admin: 01/24/18 08:32 Dose: 20 mg Guaifenesin (Mucinex) 600 mg PO TID [facility] Guaifenesin/Codeine Phosphate (Robitussin Ac) 10 ml PO Q6H PRN PRN Reason: Cough Hydralazine HCl (Apresoline) 5 mg SLOW IVP Q4H PRN PRN Reason: SBP Greater Than 180 Cefepime HCl 2 gm/ Sodium (Chloride) 100 mls @ 200 mls/hr IVPB 1830 [facility] Last Admin: 01/23/18 19:09 Dose: 100 mls Ibuprofen (Motrin) 400 mg PO Q6H PRN PRN Reason: Pain/fever Last Admin: 01/21/18 22:38 Dose: 400 mg Ondansetron HCl (Zofran Odt) 4 mg PO Q6H PRN PRN Reason: Nausea/Vomiting Ondansetron HCl (Zofran) 4 mg IVP Q6H PRN PRN Reason: Nausea/Vomiting Senna (Senokot) 2 tab PO HSPRN PRN PRN Reason: Constipation Sodium Chloride (Flush - Normal Saline) 10 ml IVF Q12HR [facility] Last Admin: 01/24/18 08:37 Dose: 10 ml Sodium Chloride (Flush - Normal Saline) 10 ml IVF PRN PRN PRN Reason: Saline Flush Throat Lozenges (Cepastat Lozenges) 1 charmaine PO Q2H PRN PRN Reason: SORE THROAT/ COUGH Last Admin: 01/23/18 12:52 Dose: 1 charmaine
[2018-01-24] MEDS: Acetaminophen 325 MG TAB PO PRN (17:02)
[2018-01-24] MEDS: Micafungin 100 MG in Sodium Chloride 0.9% 100 ML IVPB SCH (17:36)
[2018-01-24] MEDS: Cefepime 2 GM in Sodium Chloride 0.9% 100 ML IVPB SCH (19:12)
--- NOTE | 2018-01-24 19:39 | PRG ---
DATE OF SERVICE: 01/24/2018 SUBJECTIVE: Awake, bothered by the repeated coughing spells, which cause rib cage pain. No sputum p roduction. No dyspnea. No abdominal pain or diarrhea. No genitourinary symptoms. PHYSICAL EXAMINATION: VITAL SIGNS: T-max 100.7, respiratory rate 16, pulse 92, respirations 132/63. GENERAL: Awake and alert. LUNGS: Symmetric air entry, clear than previously. HEART: S1 and S2, no murmurs. ABDOMEN: No abdominal tenderness or distention. LABORATORY DATA: White cell count 0.4, platelets 56, hemoglobin 7.6. Chemistry not remarkable. E. coli retrieved from blood culture. ASSESSMENT AND DISCUSSION: Lymphoma, on treatment with chemotherapy through [place], now with neutrop enia and fever, Escherichia coli bacteremia on proper antimicrobial therapy, now with recrudescence o f fever. This is the fourth day and we will go ahead and add antifungal therapy to her management.
[2018-01-25] MEDS: Acetaminophen 325 MG TAB PO PRN ×2 (07:53→17:11)
[2018-01-25] MEDS: Docusate 100 MG CAP PO SCH ×2 (08:52→21:23)
[2018-01-25] MEDS: Benzonatate 100 MG CAP PO SCH ×3 (08:52→21:22)
[2018-01-25] MEDS: Amlodipine 10 MG TAB PO SCH (08:52)
[2018-01-25] MEDS: guaiFENesin ER 600 MG TAB PO SCH ×3 (08:52→21:22)
[2018-01-25] MEDS: Famotidine 20 MG TAB PO SCH (08:52)
[2018-01-25 09:19] LABS: Hemoglobin 8.1 g/dL (12.0-16.0); Mean Corpuscular HGB CONC 34.9 g/dL (32.0-36.0); Mean Corpuscular Hemoglobin 35.7 pg (27.0-31.0); Mean Platelet Volume 9.3 fL (7.4-10.4); Platelet Count 69 thou/uL (130-400); RBC Distribution Width 11.7 % (11.5-14.5); Red Blood Cell (RBC) Count 2.26 mill/uL (4.20-5.40)
[2018-01-25 10:40] LABS: Band 20 % (5-11); Eosinophils 2 % (0-10); Lymphocytes 24 % (21-51); MDiff Complete? YES; Monocytes 8 % (0-10); Neutrophil 46 % (42-75); PLT Morphology Comment Appears Decreased; RBC Morphology Normal
--- NOTE | 2018-01-25 11:06 | ULT ---
BILATERAL LOWER EXTREMITY VENOUS DOPPLER ULTRASOUND: Date: 01/25/18 HISTORY: Persistent fever, cancer, lower extremity edema. TECHNIQUE: Robertson scale ultrasound with color flow and spectral Doppler imaging of the deep venous systems of the lower extremities was performed bilaterally. FINDINGS: There is good flow, compression, and augmentation noted in the common femoral, femoral, deep femoral, popliteal, posterior tibial, and greater saphenous veins on either side. IMPRESSION: No evidence of deep venous thrombosis in either lower extremity. POS: [facility]
--- NOTE | 2018-01-25 15:18 | PDOC.PN ---
- Subjective Encounter Start Date: 01/25/18 Encounter Start Time: 15:16 Subjective: feels much better.walked w PT,eating better -: no nausea/vomiting/chills/ -: c/o cough but no SOB - Objective Resuscitation Status: Resuscitation Status FULL:Full Resuscitation MAR Reviewed: Yes Vital Signs & Weight: Vital Signs (12 hours) Temp Pulse Resp BP Pulse Ox 01/25/18 14:48 70 16 01/25/18 12:00 98.6 F 79 16 117/53 L 92 L 01/25/18 10:48 74 16 91 L 01/25/18 08:52 92 01/25/18 08:07 100.1 F H 92 18 01/25/18 07:39 100.1 F H 92 18 135/62 90 L 01/25/18 03:35 100.6 F H 80 16 118/57 L 93 L Weight Weight 138 lb 14.259 oz I&O: 01/24/18 01/25/18 01/26/18 06:59 06:59 06:59 Intake Total 1986 1700 Balance 1986 1700 Result Diagrams: 01/25/18 08:56 01/24/18 03:52 Additional Labs: Microbiology 01/20/18 19:34 Urine Straight Catheter Urine Culture - Final NO GROWTH AT 48 HOURS 01/20/18 18:30 Venous blood - Right Hand Blood Culture - Final Escherichia coli 01/20/18 18:35 Venous blood - Right Arm Blood Culture - Preliminary NO GROWTH AT 48 HOURS Laboratory Tests 01/21/18 01/22/18 01/23/18 05:20 03:40 08:35 WBC 0.2 L* 0.4 L* 0.3 L* Hgb 8.8 L 7.1 L 7.8 L Plt Count 13 L* 33 L 24 L* 01/24/18 03:52 WBC 0.4 L* Hgb 7.6 L Plt Count 56 L LABS REVIEWED Radiology Reviewed by me: Yes (DOPPLER US-NO DVT B/L) Phys Exam - Physical Examination Constitutional: NAD pale and tired looking HEENT: PERRLA, moist MMs, sclera anicteric, oral pharynx no lesions Neck: no nodes, no JVD, supple, full ROM Respiratory: no wheezing, no rales, no rhonchi, clear to auscultation bilateral Cardiovascular: RRR, no significant murmur, no rub Gastrointestinal: soft, non-tender, no distention, positive bowel sounds Musculoskeletal: no edema, pulses present Neurological: non-focal, normal sensation, moves all 4 limbs Psychiatric: normal affect, A&O x 3 Skin: no rash Dx/Plan (1) Sepsis Code(s): A41.9 - SEPSIS, UNSPECIFIED ORGANISM Status: Resolved (2) E coli bacteremia Code(s): R78.81 - BACTEREMIA Status: Acute (3) Neutropenic fever Code(s): D70.9 - NEUTROPENIA, UNSPECIFIED; R50.81 - FEVER PRESENTING WITH CONDITIONS CLASSIFIED ELSEWHERE Status: Acute Comment: Continue IV cefepime and micafungin added. (4) HTN (hypertension) Code(s): I10 - ESSENTIAL (PRIMARY) HYPERTENSION Status: Chronic Comment: Controlled and at goal (5) Lymphoma Status: Chronic Comment: s/p chemotherapy at [place], await records - Plan continue antibiotics, PT/OT, respiratory therapy, incentive spirometry, out of bed/ambulate, DVT proph w/SCDs persistant fever despite proper antibiotics.Doppler negative for DVT -: cont same ABx for now and monitor.clinically better -: Blood counts improved.follow -: add HH for DC.cont Ensure TID.follow Cx -: am labs * . Review of Systems - Review of Systems Constitutional: fever, weakness, malaise. negative: chills, sweats, other Eyes: negative: Pain, Vision Change, Conjunctivae Inflammation, Eyelid Inflammation, Redness, Other Cardiovascular: negative: chest pain, palpitations, orthopnea, paroxysmal nocturnal dyspnea, edema, light headedness, other Gastrointestinal: negative: Nausea, Vomiting, Abdominal Pain, Diarrhea, Constipation, Melena, Hematochezia, Other Genitourinary: negative: Dysuria, Frequency, Incontinence, Hematuria, Retention , Other Musculoskeletal: negative: Neck Pain, Shoulder Pain, Arm Pain, Back Pain, Hand Pain, Leg Pain, Foot Pain, Other Neurological: negative: Weakness, Numbness, Incoordination, Change in Speech, Confusion, Seizures, Other - Medications/Allergies Allergies/Adverse Reactions: Allergies Allergy/AdvReac Type Severity Reaction Status Date / Time iodine Allergy Verified 01/21/18 01:57 pantoprazole [From Protonix] Allergy Verified 01/21/18 01:57 povidone-iodine Allergy Verified 01/21/18 01:57 [From Betadine] soap [From Betadine] Allergy Verified 01/21/18 01:57 Medications: Current Medications Acetaminophen (Tylenol) 650 mg PO Q4H PRN PRN Reason: Headache/Fever or Mild Pain Last Admin: 01/25/18 07:53 Dose: 650 mg Albuterol/Ipratropium (Duoneb) 3 ml NEB [id number] [facility] Last Admin: 01/25/18 14:48 Dose: 3 ml Amlodipine Besylate (Norvasc) 10 mg PO DAILY [facility] Last Admin: 01/25/18 08:52 Dose: 10 mg Benzonatate (Tessalon) 100 mg PO TID [facility] Last Admin: 01/25/18 14:54 Dose: 100 mg Calcium Carbonate (Tums) 1,000 mg PO Q4H PRN PRN Reason: Heartburn or Indigestion Docusate Sodium (Colace) 100 mg PO BID [facility] Last Admin: 01/25/18 08:52 Dose: 100 mg Famotidine (Pepcid) 20 mg PO DAILY [facility] Last Admin: 01/25/18 08:52 Dose: 20 mg Guaifenesin (Mucinex) 600 mg PO TID [facility] Last Admin: 01/25/18 14:54 Dose: 600 mg Guaifenesin/Codeine Phosphate (Robitussin Ac) 10 ml PO Q6H PRN PRN Reason: Cough Hydralazine HCl (Apresoline) 5 mg SLOW IVP Q4H PRN PRN Reason: SBP Greater Than 180 Cefepime HCl 2 gm/ Sodium (Chloride) 100 mls @ 200 mls/hr IVPB 1830 [facility] Last Admin: 01/24/18 19:12 Dose: 100 mls Micafungin Sodium 100 mg/ (Sodium Chloride) 100 mls @ 100 mls/hr IVPB Q24HR [facility] Last Admin: 01/24/18 17:36 Dose: 100 mls Ibuprofen (Motrin) 400 mg PO Q6H PRN PRN Reason: Pain/fever Last Admin: 01/21/18 22:38 Dose: 400 mg Ondansetron HCl (Zofran Odt) 4 mg PO Q6H PRN PRN Reason: Nausea/Vomiting Ondansetron HCl (Zofran) 4 mg IVP Q6H PRN PRN Reason: Nausea/Vomiting Senna (Senokot) 2 tab PO HSPRN PRN PRN Reason: Constipation Sodium Chloride (Flush - Normal Saline) 10 ml IVF Q12HR [facility] Last Admin: 01/25/18 07:59 Dose: 10 ml Sodium Chloride (Flush - Normal Saline) 10 ml IVF PRN PRN PRN Reason: Saline Flush Throat Lozenges (Cepastat Lozenges) 1 charmaine PO Q2H PRN PRN Reason: SORE THROAT/ COUGH Last Admin: 01/23/18 12:52 Dose: 1 charmaine
[2018-01-25] MEDS: Micafungin 100 MG in Sodium Chloride 0.9% 100 ML IVPB SCH (17:13)
[2018-01-25] MEDS: Cefepime 2 GM in Sodium Chloride 0.9% 100 ML IVPB SCH (18:37)
[2018-01-26 03:51] LABS: Anion Gap 12 mmol/L (10-20); BUN (Urea Nitrogen) 16 mg/dL (9.8-20.1); Calc. Creatinine Clearance 63 mL/min (70-130); Calcium 9.1 mg/dL (7.8-10.44); Carbon Dioxide 26 mmol/L (23-31); Chloride 101 mmol/L (98-107); Estimated GFR-MDRD 89; Glucose 106 mg/dL (83-110); Magnesium 1.9 mg/dL (1.6-2.6); Phosphorus 3.5 mg/dL (2.3-4.7); Potassium 4.4 mmol/L (3.5-5.1); Sodium 135 mmol/L (136-145)
[2018-01-26 04:10] LABS: Band 14 % (5-11); Hemoglobin 8.2 g/dL (12.0-16.0); Lymphocytes 18 % (21-51); MDiff Complete? YES; Mean Corpuscular HGB CONC 36.7 g/dL (32.0-36.0); Mean Corpuscular Hemoglobin 37.7 pg (27.0-31.0); Mean Platelet Volume 9.4 fL (7.4-10.4); Monocytes 7 % (0-10); Neutrophil 60 % (42-75); PLT Morphology Comment Appears Decreased; Platelet Count 74 thou/uL (130-400); RBC Distribution Width 11.6 % (11.5-14.5); RBC Morphology Normal; Red Blood Cell (RBC) Count 2.18 mill/uL (4.20-5.40); White Blood Cell (WBC) Count 1.4 thou/uL (4.8-10.8)
[2018-01-26] MEDS: guaiFENesin ER 600 MG TAB PO SCH ×3 (09:56→21:18)
[2018-01-26] MEDS: Amlodipine 10 MG TAB PO SCH (09:56)
[2018-01-26] MEDS: Benzonatate 100 MG CAP PO SCH ×3 (09:56→21:17)
[2018-01-26] MEDS: Famotidine 20 MG TAB PO SCH (09:56)
[2018-01-26] MEDS: Docusate 100 MG CAP PO SCH ×2 (09:57→21:20)
[2018-01-26] MEDS ORDERED: Saccharomyces boulardii 250 MG CAP PO SCH ×2 (09:58→10:30)
[2018-01-26] MEDS ORDERED: guaiFENesin ER 600 MG TAB PO SCH ×2 (09:59→10:30)
[2018-01-26] MEDS ORDERED: Guaifenesin DM 100-10/5 ML UDCUP PO PRN (11:14)
--- NOTE | 2018-01-26 11:41 | RAD ---
PORTABLE CHEST ONE VIEW: Date: 01-26-18 Time: 10:40 a.m. History: Fever, cough. FINDINGS: Comparison made with exam of 01-23-18. The heart size is normal. The aorta is tortuous. A right sided [id number] is in place. The lungs are well expanded without lobar consolidation, pneumothoraces or pleural effusions. IMPRESSION: No radiographic evidence of acute cardiopulmonary process. POS: [facility]
--- NOTE | 2018-01-26 12:26 | PDOC.PN ---
- Subjective Encounter Start Date: 01/26/18 Encounter Start Time: 12:24 Subjective: feels better.able to eat better and mobile with the help of PT - Objective Resuscitation Status: Resuscitation Status FULL:Full Resuscitation MAR Reviewed: Yes Vital Signs & Weight: Vital Signs (12 hours) Temp Pulse Resp BP BP BP Pulse Ox 01/26/18 11:47 99.3 F 81 18 110/55 L 93 L 01/26/18 09:56 83 106/54 L 01/26/18 08:00 99.9 F H 83 18 93 L 01/26/18 07:10 99.9 F H 83 18 106/54 L 93 L 01/26/18 06:52 98 01/26/18 06:49 81 16 98 01/26/18 03:18 100.0 F H 94 20 128/60 98 Weight Weight 138 lb 14.259 oz I&O: 01/25/18 01/26/18 01/27/18 06:59 06:59 06:59 Intake Total 1700 1650 Balance 1700 1650 Result Diagrams: 01/26/18 03:20 01/26/18 03:20 Additional Labs: Microbiology 01/20/18 18:30 Venous blood - Right Hand Blood Culture - Final Escherichia coli Radiology Reviewed by me: Yes (CXR- no infiltrates) Phys Exam - Physical Examination Constitutional: NAD pale and weak looking coughing that sounds wet HEENT: PERRLA, moist MMs, sclera anicteric, oral pharynx no lesions Neck: no nodes, no JVD, supple, full ROM Respiratory: no wheezing, no rales, no rhonchi, clear to auscultation bilateral Cardiovascular: RRR, no significant murmur, no rub Gastrointestinal: soft, non-tender, no distention, positive bowel sounds Musculoskeletal: no edema, pulses present Neurological: non-focal, normal sensation, moves all 4 limbs Psychiatric: normal affect, A&O x 3 Skin: no rash Dx/Plan (1) Sepsis Code(s): A41.9 - SEPSIS, UNSPECIFIED ORGANISM Status: Resolved (2) E coli bacteremia Code(s): R78.81 - BACTEREMIA Status: Acute (3) Neutropenic fever Code(s): D70.9 - NEUTROPENIA, UNSPECIFIED; R50.81 - FEVER PRESENTING WITH CONDITIONS CLASSIFIED ELSEWHERE Status: Acute Comment: Continue IV cefepime and micafungin added. 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 need MRSA coverage -: will discuss w ID -: CXR done this morning & chan snot show any PNA -: WBC counts trending up.platelets stable. -: not ready for DC yet w continued fever.will monitor.am labs * . Review of Systems - Review of Systems Constitutional: weakness, malaise. negative: fever, chills, sweats, other ENT: negative: Ear Pain, Ear Discharge, Nose Pain, Nose Discharge, Nose Congestion, Mouth Pain, Mouth Swelling, Throat Pain, Throat Swelling, Other Respiratory: Cough, Sputum. negative: Dry, Shortness of Breath, Hemoptysis, SOB with Excertion, Pleuritic Pain, Wheezing Cardiovascular: negative: chest pain, palpitations, orthopnea, paroxysmal nocturnal dyspnea, edema, light headedness, other Gastrointestinal: negative: Nausea, Vomiting, Abdominal Pain, Diarrhea, Constipation, Melena, Hematochezia, Other Genitourinary: negative: Dysuria, Frequency, Incontinence, Hematuria, Retention , Other Musculoskeletal: negative: Neck Pain, Shoulder Pain, Arm Pain, Back Pain, Hand Pain, Leg Pain, Foot Pain, Other Skin: negative: Rash, Lesions, Reji, Bruising, Other Neurological: negative: Weakness, Numbness, Incoordination, Change in Speech, Confusion, Seizures, Other - Medications/Allergies Allergies/Adverse Reactions: Allergies Allergy/AdvReac Type Severity Reaction Status Date / Time iodine Allergy Verified 01/21/18 01:57 pantoprazole [From Protonix] Allergy Verified 01/21/18 01:57 povidone-iodine Allergy Verified 01/21/18 01:57 [From Betadine] soap [From Betadine] Allergy Verified 01/21/18 01:57 Medications: Current Medications Acetaminophen (Tylenol) 650 mg PO Q4H PRN PRN Reason: Headache/Fever or Mild Pain Last Admin: 01/25/18 17:11 Dose: 650 mg Albuterol/Ipratropium (Duoneb) 3 ml NEB [id number]-MG PRN PRN Reason: SOB &/or Wheezing Amlodipine Besylate (Norvasc) 10 mg PO DAILY [facility] Last Admin: 01/26/18 09:56 Dose: 10 mg Benzonatate (Tessalon) 100 mg PO TID [facility] Last Admin: 01/26/18 09:56 Dose: 100 mg Calcium Carbonate (Tums) 1,000 mg PO Q4H PRN PRN Reason: Heartburn or Indigestion Docusate Sodium (Colace) 100 mg PO BID [facility] Last Admin: 01/26/18 09:57 Dose: Not Given Famotidine (Pepcid) 20 mg PO DAILY [facility] Last Admin: 01/26/18 09:56 Dose: 20 mg Guaifenesin (Mucinex) 1,200 mg PO TID [facility] Guaifenesin/Codeine Phosphate (Robitussin Ac) 10 ml PO Q6H PRN PRN Reason: Cough Guaifenesin/Dextromethorphan (Robitussin Dm) 10 ml PO Q4H PRN PRN Reason: Cough Hydralazine HCl (Apresoline) 5 mg SLOW IVP Q4H PRN PRN Reason: SBP Greater Than 180 Cefepime HCl 2 gm/ Sodium (Chloride) 100 mls @ 200 mls/hr IVPB 1830 [facility] Last Admin: 01/25/18 18:37 Dose: 100 mls Micafungin Sodium 100 mg/ (Sodium Chloride) 100 mls @ 100 mls/hr IVPB Q24HR [facility] Last Admin: 01/25/18 17:13 Dose: 100 mls Ibuprofen (Motrin) 400 mg PO Q6H PRN PRN Reason: Pain/fever Last Admin: 01/21/18 22:38 Dose: 400 mg Ondansetron HCl (Zofran Odt) 4 mg PO Q6H PRN PRN Reason: Nausea/Vomiting Ondansetron HCl (Zofran) 4 mg IVP Q6H PRN PRN Reason: Nausea/Vomiting Saccharomyces Boulardii (Florastor) 250 mg PO DAILY [facility] Senna (Senokot) 2 tab PO HSPRN PRN PRN Reason: Constipation Sodium Chloride (Flush - Normal Saline) 10 ml IVF Q12HR [facility] Last Admin: 01/26/18 09:56 Dose: 10 ml Sodium Chloride (Flush - Normal Saline) 10 ml IVF PRN PRN PRN Reason: Saline Flush Throat Lozenges (Cepastat Lozenges) 1 charmaine PO Q2H PRN PRN Reason: SORE THROAT/ COUGH Last Admin: 01/23/18 12:52 Dose: 1 charmaine
[2018-01-26] MEDS: Cefepime 2 GM in Sodium Chloride 0.9% 100 ML IVPB SCH (17:30)
[2018-01-26] MEDS: Micafungin 100 MG in Sodium Chloride 0.9% 100 ML IVPB SCH (17:31)
[2018-01-26] MEDS: Ibuprofen 200 MG TAB PO PRN (21:19)
[2018-01-26] MEDS: guaiFENesin/Codeine Phosphate 200 mg/20 mg 10 ml UD Cup PO PRN (21:19)
--- NOTE | 2018-01-27 06:43 | PDOC.EVN ---
Event Note - Event Note Event Note: RN called - HH 5.9. Will transfuse 1 unit PRBC, Check FOBT
[2018-01-27 07:34] LABS: Band 12 % (5-11); Bite Cells SLIGHT = 2-5 cells (100X) (0-1/hpf); Dohle Bodies SLIGHT; Hemoglobin 5.9 g/dL (12.0-16.0); Lymphocytes 20 % (21-51); MDiff Complete? YES; Mean Corpuscular HGB CONC 34.3 g/dL (32.0-36.0); Mean Corpuscular Hemoglobin 35.8 pg (27.0-31.0); Neutrophil 68 % (42-75); PLT Morphology Comment Appears Decreased; Platelet Count 76 thou/uL (130-400); Polychromasia SLIGHT = 2-3 cells (100X) (0-2/hpf); RBC Distribution Width 11.7 % (11.5-14.5); Red Blood Cell (RBC) Count 1.66 mill/uL (4.20-5.40); Toxic Granulation MODERATE; White Blood Cell (WBC) Count 1.5 thou/uL (4.8-10.8)
[2018-01-27] MEDS: Benzonatate 100 MG CAP PO SCH ×3 (09:25→21:14)
[2018-01-27] MEDS: Docusate 100 MG CAP PO SCH ×2 (09:26→21:14)
[2018-01-27] MEDS: guaiFENesin ER 600 MG TAB PO SCH ×3 (09:26→21:13)
[2018-01-27] MEDS: Saccharomyces boulardii 250 MG CAP PO SCH (09:27)
[2018-01-27] MEDS: Famotidine 20 MG TAB PO SCH (09:27)
[2018-01-27] MEDS: Amlodipine 10 MG TAB PO SCH (09:29)
[2018-01-27 11:08] LABS: Hemoglobin 8.1 g/dL (12.0-16.0)
--- NOTE | 2018-01-27 11:47 | PDOC.PN ---
- Subjective Encounter Start Date: 01/27/18 Encounter Start Time: 11:45 Subjective: feels better.no bloody or black stools.no SOB/ -: cough better - Objective Resuscitation Status: Resuscitation Status FULL:Full Resuscitation MAR Reviewed: Yes Vital Signs & Weight: Vital Signs (12 hours) Temp Pulse Resp BP BP Pulse Ox 01/27/18 09:29 69 103/51 L 01/27/18 07:48 98.8 F 69 20 103/51 L 94 L 01/27/18 04:00 97.8 F 01/27/18 00:00 98.9 F Weight Weight 138 lb 14.259 oz I&O: 01/26/18 01/27/18 01/28/18 06:59 06:59 06:59 Intake Total 1650 1000 Balance 1650 1000 Result Diagrams: 01/27/18 09:55 01/26/18 03:20 Additional Labs: Microbiology 01/20/18 19:34 Urine Straight Catheter Urine Culture - Final NO GROWTH AT 48 HOURS 01/20/18 18:35 Venous blood - Right Arm Blood Culture - Final NO GROWTH IN 5 DAYS 01/20/18 18:30 Venous blood - Right Hand Blood Culture - Final Escherichia coli LABS REVIEWED Phys Exam - Physical Examination Constitutional: NAD PALE HEENT: PERRLA, moist MMs, sclera anicteric, TM's clear, oral pharynx no lesions Neck: no nodes, no JVD, supple, full ROM Respiratory: no wheezing, no rales, no rhonchi, clear to auscultation bilateral Cardiovascular: RRR, no significant murmur, no rub Gastrointestinal: soft, non-tender, no distention, positive bowel sounds Neurological: non-focal, normal sensation, moves all 4 limbs Psychiatric: normal affect, A&O x 3 Skin: no rash Dx/Plan (1) Sepsis Code(s): A41.9 - SEPSIS, UNSPECIFIED ORGANISM Status: Resolved (2) E coli bacteremia Code(s): R78.81 - BACTEREMIA Status: Acute (3) Neutropenic fever Code(s): D70.9 - NEUTROPENIA, UNSPECIFIED; R50.81 - FEVER PRESENTING WITH CONDITIONS CLASSIFIED ELSEWHERE Status: Acute Comment: Continue IV cefepime and micafungin added. 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 Review of Systems - Review of Systems Constitutional: negative: fever, chills, sweats, weakness, malaise, other Respiratory: negative: Cough, Dry, Shortness of Breath, Hemoptysis, SOB with Excertion, Pleuritic Pain, Sputum, Wheezing Cardiovascular: negative: chest pain, palpitations, orthopnea, paroxysmal nocturnal dyspnea, edema, light headedness, other Gastrointestinal: negative: Nausea, Vomiting, Abdominal Pain, Diarrhea, Constipation, Melena, Hematochezia, Other Genitourinary: negative: Dysuria, Frequency, Incontinence, Hematuria, Retention , Other Musculoskeletal: negative: Neck Pain, Shoulder Pain, Arm Pain, Back Pain, Hand Pain, Leg Pain, Foot Pain, Other Skin: negative: Rash, Lesions, Reji, Bruising, Other Neurological: negative: Weakness, Numbness, Incoordination, Change in Speech, Confusion, Seizures, Other - Medications/Allergies Allergies/Adverse Reactions: Allergies Allergy/AdvReac Type Severity Reaction Status Date / Time iodine Allergy Verified 01/21/18 01:57 pantoprazole [From Protonix] Allergy Verified 01/21/18 01:57 povidone-iodine Allergy Verified 01/21/18 01:57 [From Betadine] soap [From Betadine] Allergy Verified 01/21/18 01:57 Medications: Current Medications Acetaminophen (Tylenol) 650 mg PO Q4H PRN PRN Reason: Headache/Fever or Mild Pain Last Admin: 01/25/18 17:11 Dose: 650 mg Albuterol/Ipratropium (Duoneb) 3 ml NEB Q2KP-TW PRN PRN Reason: SOB &/or Wheezing Amlodipine Besylate (Norvasc) 10 mg PO DAILY [facility] Last Admin: 01/27/18 09:29 Dose: Not Given Benzonatate (Tessalon) 100 mg PO TID [facility] Last Admin: 01/27/18 09:25 Dose: 100 mg Calcium Carbonate (Tums) 1,000 mg PO Q4H PRN PRN Reason: Heartburn or Indigestion Docusate Sodium (Colace) 100 mg PO BID [facility] Last Admin: 01/27/18 09:26 Dose: 100 mg Famotidine (Pepcid) 20 mg PO DAILY [facility] Last Admin: 01/27/18 09:27 Dose: 20 mg Guaifenesin (Mucinex) 1,200 mg PO TID [facility] Last Admin: 01/27/18 09:26 Dose: 1,200 mg Guaifenesin/Codeine Phosphate (Robitussin Ac) 10 ml PO Q6H PRN PRN Reason: Cough Last Admin: 01/26/18 21:19 Dose: 10 ml Guaifenesin/Dextromethorphan (Robitussin Dm) 10 ml PO Q4H PRN PRN Reason: Cough Last Admin: 01/26/18 14:10 Dose: 10 ml Hydralazine HCl (Apresoline) 5 mg SLOW IVP Q4H PRN PRN Reason: SBP Greater Than 180 Cefepime HCl 2 gm/ Sodium (Chloride) 100 mls @ 200 mls/hr IVPB 1830 [facility] Last Admin: 01/26/18 17:30 Dose: 100 mls Micafungin Sodium 100 mg/ (Sodium Chloride) 100 mls @ 100 mls/hr IVPB Q24HR [facility] Last Admin: 01/26/18 17:31 Dose: 100 mls Ibuprofen (Motrin) 400 mg PO Q6H PRN PRN Reason: Pain/fever Last Admin: 01/26/18 21:19 Dose: 400 mg Ondansetron HCl (Zofran Odt) 4 mg PO Q6H PRN PRN Reason: Nausea/Vomiting Ondansetron HCl (Zofran) 4 mg IVP Q6H PRN PRN Reason: Nausea/Vomiting Saccharomyces Boulardii (Florastor) 250 mg PO DAILY [facility] Last Admin: 01/27/18 09:27 Dose: 250 mg Senna (Senokot) 2 tab PO HSPRN PRN PRN Reason: Constipation Sodium Chloride (Flush - Normal Saline) 10 ml IVF Q12HR [facility] Last Admin: 01/27/18 09:30 Dose: 10 ml Sodium Chloride (Flush - Normal Saline) 10 ml IVF PRN PRN PRN Reason: Saline Flush Throat Lozenges (Cepastat Lozenges) 1 charmaine PO Q2H PRN PRN Reason: SORE THROAT/ COUGH Last Admin: 01/23/18 12:52 Dose: 1 charmaine
--- NOTE | 2018-01-27 14:26 | PRG ---
DATE OF SERVICE: 01/27/2018 SUBJECTIVE: Still not feeling well. Cough is less though she is somewhat disappointed because she h ad recrudescence of low grade temperature elevation. No headaches, no visual symptoms. Cough is les s. No sputum production, no chest pain, no abdominal pain, no diarrhea, no genitourinary symptoms. No neurological symptoms. PHYSICAL EXAMINATION: VITAL SIGNS: T-max 100.1 at 7:00 p.m., blood pressure 133/63, pulse 82, respirations 20, O2 saturati on 94%. GENERAL: The patient appears in no distress, chronically ill appearing. LUNGS: Clear. CARDIOVASCULAR: S1, S2, regular rate. ABDOMEN: Soft and not distended. EXTREMITIES: Moves all extremities equally. LABORATORY DATA: White cell count up to 1.4, absolute neutrophil count around 650, hemoglobin 8.2, a nd platelets up to 74,000. Chemistries are not remarkable. Microbiology: Blood cultures with E. co li in 1 out of 2 sets as noted previously. ASSESSMENT AND DISCUSSION: Lymphoma on treatment with chemotherapy through [place], neutropenia and fev er. E. coli bacteremia, possibly from respiratory tract or gastrointestinal tract with translocation . The patient has been on cefepime and we have added antifungal therapy in view of persistence of fe mary. Then, was seem to have now neutrophil count response and if that persists, we should seek furth er clinical improvement going forward in resolution of temperature elevation. Continue the current r egimen.
[2018-01-27] MEDS: Micafungin 100 MG in Sodium Chloride 0.9% 100 ML IVPB SCH (18:45)
[2018-01-27] MEDS: Cefepime 2 GM in Sodium Chloride 0.9% 100 ML IVPB SCH (21:12)
[2018-01-27] MEDS: guaiFENesin/Codeine Phosphate 200 mg/20 mg 10 ml UD Cup PO PRN (21:13)
[2018-01-27] MEDS: Ibuprofen 200 MG TAB PO PRN (21:14)
[2018-01-28 05:31] LABS: Anion Gap 10 mmol/L (10-20); BUN (Urea Nitrogen) 14 mg/dL (9.8-20.1); Calc. Creatinine Clearance 67 mL/min (70-130); Calcium 8.8 mg/dL (7.8-10.44); Carbon Dioxide 26 mmol/L (23-31); Chloride 105 mmol/L (98-107); Estimated GFR-MDRD Greater than 90; Glucose 92 mg/dL (83-110); Potassium 4.2 mmol/L (3.5-5.1); Sodium 137 mmol/L (136-145)
[2018-01-28] MEDS: Famotidine 20 MG TAB PO SCH (08:36)
[2018-01-28] MEDS: Docusate 100 MG CAP PO SCH ×2 (08:36→20:24)
[2018-01-28] MEDS: Saccharomyces boulardii 250 MG CAP PO SCH (08:36)
[2018-01-28] MEDS: Benzonatate 100 MG CAP PO SCH ×3 (08:36→20:24)
[2018-01-28] MEDS: guaiFENesin ER 600 MG TAB PO SCH ×3 (08:36→20:24)
[2018-01-28] MEDS: Amlodipine 10 MG TAB PO SCH (08:37)
[2018-01-28 09:46] LABS: Hemoglobin 7.8 g/dL (12.0-16.0); Mean Corpuscular HGB CONC 34.5 g/dL (32.0-36.0); Mean Corpuscular Hemoglobin 35.1 pg (27.0-31.0); Mean Platelet Volume 9.7 fL (7.4-10.4); Platelet Count 95 thou/uL (130-400); RBC Distribution Width 11.5 % (11.5-14.5); Red Blood Cell (RBC) Count 2.22 mill/uL (4.20-5.40); White Blood Cell (WBC) Count 1.6 thou/uL (4.8-10.8)
[2018-01-28 10:10] LABS: Band 20 % (5-11); Lymphocytes 2 % (21-51); MDiff Complete? YES; Monocytes 6 % (0-10); Neutrophil 70 % (42-75); PLT Morphology Comment Appears Decreased; Polychromasia SLIGHT = 2-3 cells (100X) (0-2/hpf); Reactive Lymphocytes 2 % (0-10); Toxic Granulation SLIGHT
--- NOTE | 2018-01-28 12:21 | PDOC.PN ---
- Subjective Encounter Start Date: 01/28/18 Encounter Start Time: 12:20 Subjective: feels ok,no new complaints.eager to go home -: no N/V/D.no CP/SOB -: fever again last night - Objective Resuscitation Status: Resuscitation Status FULL:Full Resuscitation MAR Reviewed: Yes Vital Signs & Weight: Vital Signs (12 hours) Temp Pulse Resp BP Pulse Ox 01/28/18 11:53 99.2 F 80 20 119/59 L 95 01/28/18 08:37 69 01/28/18 07:43 98 F 69 14 118/59 L 96 Weight Weight 138 lb 14.259 oz I&O: 01/27/18 01/28/18 01/29/18 06:59 06:59 06:59 Intake Total 1000 120 Balance 1000 120 Result Diagrams: 01/28/18 09:33 01/28/18 05:14 Additional Labs: Laboratory Tests 01/24/18 01/25/18 01/26/18 03:52 08:56 03:20 Hgb 7.6 L 8.1 L 8.2 L 01/27/18 01/27/18 06:10 09:55 Hgb 5.9 L* 8.1 L Microbiology 01/27/18 15:54 Stool Stool Occult Blood (RADHA) - Final 01/20/18 19:34 Urine Straight Catheter Urine Culture - Final NO GROWTH AT 48 HOURS 01/20/18 18:35 Venous blood - Right Arm Blood Culture - Final NO GROWTH IN 5 DAYS 01/20/18 18:30 Venous blood - Right Hand Blood Culture - Final Escherichia coli labs reviewed Phys Exam - Physical Examination Constitutional: NAD pale and weak but looks better than yesterday HEENT: PERRLA, moist MMs, sclera anicteric, oral pharynx no lesions Neck: no nodes, no JVD, supple, full ROM Respiratory: no wheezing, no rales, no rhonchi, clear to auscultation bilateral Cardiovascular: RRR, no significant murmur, no rub Gastrointestinal: soft, non-tender, no distention, positive bowel sounds Musculoskeletal: no edema, pulses present Neurological: non-focal, normal sensation, moves all 4 limbs Psychiatric: normal affect, A&O x 3 Skin: no rash Dx/Plan (1) Sepsis Code(s): A41.9 - SEPSIS, UNSPECIFIED ORGANISM Status: Resolved Qualifiers: Sepsis type: Escherichia coli Qualified Code(s): A41.51 - Sepsis due to Escherichia coli [E. coli] (2) E coli bacteremia Code(s): R78.81 - BACTEREMIA Status: Acute (3) Neutropenic fever Code(s): D70.9 - NEUTROPENIA, UNSPECIFIED; R50.81 - FEVER PRESENTING WITH CONDITIONS CLASSIFIED ELSEWHERE Status: Acute Comment: Continue IV cefepime and micafungin added. (4) HTN (hypertension) Code(s): I10 - ESSENTIAL (PRIMARY) HYPERTENSION Status: Chronic Comment: Controlled and at goal (5) Lymphoma Status: Chronic Comment: s/p chemotherapy at [place], [facility] records (6) Pancytopenia due to chemotherapy Code(s): D61.810 - ANTINEOPLASTIC CHEMOTHERAPY INDUCED PANCYTOPENIA Status: Chronic Comment: improving - Plan continue antibiotics, PT/OT, DVT proph w/SCDs blood counts stble. -: contoinued fever.discussed w ID Dr. [email or web address] current antimicrobials -: hemodynamically stable. -: not ready for DC yet given persistant fever. -: am labs * . Review of Systems - Review of Systems Constitutional: fever, weakness, malaise. negative: chills, sweats, other ENT: negative: Ear Pain, Ear Discharge, Nose Pain, Nose Discharge, Nose Congestion, Mouth Pain, Mouth Swelling, Throat Pain, Throat Swelling, Other Respiratory: negative: Cough, Dry, Shortness of Breath, Hemoptysis, SOB with Excertion, Pleuritic Pain, Sputum, Wheezing Cardiovascular: negative: chest pain, palpitations, orthopnea, paroxysmal nocturnal dyspnea, edema, light headedness, other Gastrointestinal: negative: Nausea, Vomiting, Abdominal Pain, Diarrhea, Constipation, Melena, Hematochezia, Other Genitourinary: negative: Dysuria, Frequency, Incontinence, Hematuria, Retention , Other Musculoskeletal: negative: Neck Pain, Shoulder Pain, Arm Pain, Back Pain, Hand Pain, Leg Pain, Foot Pain, Other Skin: negative: Rash, Lesions, Reji, Bruising, Other Neurological: negative: Weakness, Numbness, Incoordination, Change in Speech, Confusion, Seizures, Other - Medications/Allergies Allergies/Adverse Reactions: Allergies Allergy/AdvReac Type Severity Reaction Status Date / Time iodine Allergy Verified 06/08/18 01:57 pantoprazole [From Protonix] Allergy Verified 01/21/18 01:57 povidone-iodine Allergy Verified 01/21/18 01:57 [From Betadine] soap [From Betadine] Allergy Verified 01/21/18 01:57 Medications: Current Medications Acetaminophen (Tylenol) 650 mg PO Q4H PRN PRN Reason: Headache/Fever or Mild Pain Last Admin: 01/25/18 17:11 Dose: 650 mg Albuterol/Ipratropium (Duoneb) 3 ml NEB [id number] PRN PRN Reason: SOB &/or Wheezing Amlodipine Besylate (Norvasc) 10 mg PO DAILY [facility] Last Admin: 01/28/18 08:37 Dose: 10 mg Benzonatate (Tessalon) 100 mg PO TID [facility] Last Admin: 01/28/18 08:36 Dose: 100 mg Calcium Carbonate (Tums) 1,000 mg PO Q4H PRN PRN Reason: Heartburn or Indigestion Docusate Sodium (Colace) 100 mg PO BID [facility] Last Admin: 01/28/18 08:36 Dose: Not Given Famotidine (Pepcid) 20 mg PO DAILY [facility] Last Admin: 01/28/18 08:36 Dose: 20 mg Guaifenesin (Mucinex) 1,200 mg PO TID [facility] Last Admin: 01/28/18 08:36 Dose: 1,200 mg Guaifenesin/Codeine Phosphate (Robitussin Ac) 10 ml PO Q6H PRN PRN Reason: Cough Last Admin: 01/27/18 21:13 Dose: 10 ml Guaifenesin/Dextromethorphan (Robitussin Dm) 10 ml PO Q4H PRN PRN Reason: Cough Last Admin: 01/26/18 14:10 Dose: 10 ml Hydralazine HCl (Apresoline) 5 mg SLOW IVP Q4H PRN PRN Reason: SBP Greater Than 180 Cefepime HCl 2 gm/ Sodium (Chloride) 100 mls @ 200 mls/hr IVPB 1830 [facility] Last Admin: 01/27/18 21:12 Dose: 100 mls Micafungin Sodium 100 mg/ (Sodium Chloride) 100 mls @ 100 mls/hr IVPB Q24HR [facility] Last Admin: 01/27/18 18:45 Dose: 100 mls Ibuprofen (Motrin) 400 mg PO Q6H PRN PRN Reason: Pain/fever Last Admin: 01/27/18 21:14 Dose: 400 mg Ondansetron HCl (Zofran Odt) 4 mg PO Q6H PRN PRN Reason: Nausea/Vomiting Ondansetron HCl (Zofran) 4 mg IVP Q6H PRN PRN Reason: Nausea/Vomiting Saccharomyces Boulardii (Florastor) 250 mg PO DAILY [facility] Last Admin: 01/28/18 08:36 Dose: 250 mg Senna (Senokot) 2 tab PO HSPRN PRN PRN Reason: Constipation Sodium Chloride (Flush - Normal Saline) 10 ml IVF Q12HR [facility] Last Admin: 01/28/18 08:37 Dose: 10 ml Sodium Chloride (Flush - Normal Saline) 10 ml IVF PRN PRN PRN Reason: Saline Flush Throat Lozenges (Cepastat Lozenges) 1 charmaine PO Q2H PRN PRN Reason: SORE THROAT/ COUGH Last Admin: 01/23/18 12:52 Dose: 1 charmaine
[2018-01-28] MEDS: Acetaminophen 325 MG TAB PO PRN (15:17)
[2018-01-28] MEDS: Micafungin 100 MG in Sodium Chloride 0.9% 100 ML IVPB SCH (17:38)
--- NOTE | 2018-01-28 18:51 | PRG ---
DATE OF SERVICE: 01/28/2018 SUBJECTIVE: More alert today. Feels stronger. Still having intermittent temperature elevation, but little bit of cough but not much. No headaches. No sore throat, odynophagia, or dysphagia. No too thache. No back pain. No abdominal pain or diarrhea. Voiding without difficulty. No joint symptom s or skin disorder. OBJECTIVE: VITAL SIGNS: She was max 102.8 yesterday at 8:00 p.m., today 100.5 little while ago. Other vital si gns are normal. GENERAL: Awake, alert, oriented. LUNGS: Symmetric clear breath sounds. HEART: S1, S2, regular rate. ABDOMEN: Soft, nontender. EXTREMITIES: Moves all extremities equally. LABORATORY DATA: White cell count is up to 1.6, hemoglobin 7.8, platelets 95,000, 70% neutrophils, 2 0% bands, total neutrophil count is about 1000 now. Creatinine 0.59, sodium 137. ASSESSMENT AND DISCUSSION: Lymphoma, on treatment with chemotherapy since November, admitted with neutr openia and fever. E. coli bacteremia with some episodes of fever still intermittently. She had an a bdomen and pelvis CT in 04/2017, which showed dilated small bowel lower abdomen transition point. Ma y have to scan her abdomen and pelvis again in view of the persistence of fever, but will wait for an other 2 days and see. We will check CMV, DNA, PCR, cryptococcus antigen, and histoplasma antigen.
[2018-01-28] MEDS: guaiFENesin/Codeine Phosphate 200 mg/20 mg 10 ml UD Cup PO PRN (20:22)
[2018-01-28] MEDS: Cefepime 2 GM in Sodium Chloride 0.9% 100 ML IVPB SCH (20:22)
[2018-01-28] MEDS: Ibuprofen 200 MG TAB PO PRN (20:23)
[2018-01-29 07:50] LABS: Band 4 % (5-11); Hemoglobin 6.8 g/dL (12.0-16.0); Lymphocytes 12 % (21-51); MDiff Complete? YES; Macrocytosis SLIGHT = 6-15 cells (100X) (0-5/hpf); Mean Corpuscular HGB CONC 34.8 g/dL (32.0-36.0); Mean Corpuscular Hemoglobin 35.6 pg (27.0-31.0); Mean Platelet Volume 9.3 fL (7.4-10.4); Monocytes 11 % (0-10); Neutrophil 71 % (42-75); PLT Morphology Comment Appears Decreased; Platelet Count 91 thou/uL (130-400); RBC Distribution Width 11.6 % (11.5-14.5); Reactive Lymphocytes 2 % (0-10); Red Blood Cell (RBC) Count 1.92 mill/uL (4.20-5.40); White Blood Cell (WBC) Count 1.5 thou/uL (4.8-10.8)
[2018-01-29] MEDS ORDERED: VANCOMYCIN IVPB PRN (08:20)
[2018-01-29] MEDS ORDERED: Vancomycin HCl 1 GM in Premix Bag 1 BAG IVPB SCH (09:00)
[2018-01-29] MEDS: Vancomycin HCl 1.25 GM in Sodium Chloride 0.9% 250 ML 250 ML IVPB SCH (09:51)
[2018-01-29] MEDS: Amlodipine 10 MG TAB PO SCH (09:56)
[2018-01-29] MEDS: Docusate 100 MG CAP PO SCH ×2 (09:56→19:47)
[2018-01-29] MEDS: Benzonatate 100 MG CAP PO SCH ×3 (09:56→19:46)
[2018-01-29] MEDS: guaiFENesin ER 600 MG TAB PO SCH ×3 (09:57→19:46)
[2018-01-29] MEDS: Famotidine 20 MG TAB PO SCH (09:57)
[2018-01-29] MEDS: Saccharomyces boulardii 250 MG CAP PO SCH (09:58)
[2018-01-29 10:54] LABS: Band 20 % (5-11); Hemoglobin 7.9 g/dL (12.0-16.0); Large Platelets SLIGHT; Lymphocytes 8 % (21-51); MDiff Complete? YES; Macrocytosis SLIGHT = 6-15 cells (100X) (0-5/hpf); Mean Corpuscular Hemoglobin 36.7 pg (27.0-31.0); Mean Platelet Volume 9.6 fL (7.4-10.4); Monocytes 7 % (0-10); Neutrophil 63 % (42-75); PLT Morphology Comment Appears Decreased; Platelet Count 105 thou/uL (130-400); RBC Distribution Width 11.4 % (11.5-14.5); Reactive Lymphocytes 2 % (0-10); Red Blood Cell (RBC) Count 2.16 mill/uL (4.20-5.40); Rouleaux Formation SLIGHT = 1-5 cells (100X) (None Seen); Toxic Granulation SLIGHT; White Blood Cell (WBC) Count 1.7 thou/uL (4.8-10.8)
--- NOTE | 2018-01-29 13:05 | PDOC.PN ---
- Subjective Encounter Start Date: 01/29/18 Encounter Start Time: 13:02 Subjective: continues to have efevr ,low grade w chills -: reports that she feels pretty good.eating well and feels stronger - Objective Resuscitation Status: Resuscitation Status FULL:Full Resuscitation MAR Reviewed: Yes Vital Signs & Weight: Vital Signs (12 hours) Temp Pulse Resp BP BP Pulse Ox 01/29/18 12:00 99.2 F 71 20 130/59 L 92 L 01/29/18 09:56 74 135/62 01/29/18 08:00 98.8 F 74 20 96 01/29/18 07:52 98.8 F 70 20 132/65 96 Weight Weight 138 lb 14.259 oz I&O: 01/28/18 01/29/18 01/30/18 06:59 06:59 06:59 Intake Total 120 240 Balance 120 240 Result Diagrams: 01/29/18 09:00 01/28/18 05:14 Additional Labs: Microbiology 01/28/18 18:26 Serum Cryptococcal Antigen - Final 01/27/18 15:54 Stool Stool Occult Blood (RADHA) - Final 01/20/18 19:34 Urine Straight Catheter Urine Culture - Final NO GROWTH AT 48 HOURS 01/20/18 18:35 Venous blood - Right Arm Blood Culture - Final NO GROWTH IN 5 DAYS 01/20/18 18:30 Venous blood - Right Hand Blood Culture - Final Escherichia coli Laboratory Tests 01/21/18 01/22/18 01/23/18 05:20 03:40 08:35 WBC 0.2 L* 0.4 L* 0.3 L* 01/24/18 01/25/18 01/26/18 03:52 08:56 03:20 WBC 0.4 L* 1.0 L 1.4 L 01/27/18 01/28/18 01/29/18 06:10 09:33 06:40 WBC 1.5 L 1.6 L 1.5 L 01/29/18 09:00 WBC 1.7 L Phys Exam - Physical Examination Constitutional: NAD pale and weak looking HEENT: PERRLA, moist MMs, sclera anicteric, oral pharynx no lesions Neck: no nodes, no JVD, supple, full ROM Respiratory: no wheezing, no rales, no rhonchi, clear to auscultation bilateral Cardiovascular: RRR, no significant murmur, no rub Gastrointestinal: soft, non-tender, no distention, positive bowel sounds Musculoskeletal: no edema, pulses present Neurological: non-focal, normal sensation, moves all 4 limbs Psychiatric: normal affect, A&O x 3 Skin: no rash, normal turgor, cap refill <2 seconds Dx/Plan (1) Sepsis Code(s): A41.9 - SEPSIS, UNSPECIFIED ORGANISM Status: Resolved Qualifiers: Sepsis type: Escherichia coli Qualified Code(s): A41.51 - Sepsis due to Escherichia coli [E. coli] (2) E coli bacteremia Code(s): R78.81 - BACTEREMIA Status: Acute (3) Neutropenic fever Code(s): D70.9 - NEUTROPENIA, UNSPECIFIED; R50.81 - FEVER PRESENTING WITH CONDITIONS CLASSIFIED ELSEWHERE Status: Acute Comment: Continue IV cefepime and micafungin added. (4) HTN (hypertension) Code(s): I10 - ESSENTIAL (PRIMARY) HYPERTENSION Status: Chronic Comment: Controlled and at goal (5) Lymphoma Status: Chronic Comment: s/p chemotherapy at [facility], await records (6) Pancytopenia due to chemotherapy Code(s): D61.810 - ANTINEOPLASTIC CHEMOTHERAPY INDUCED PANCYTOPENIA Status: Chronic Comment: improving - Plan continue antibiotics, PT/OT, out of bed/ambulate, DVT proph w/SCDs due to persistant fever-will add vancomycin -: re send blood & urine Cx and line cx -: crytptococcal Ag negative.CMV & Histoplasms studies pending -: appreciate ID input. -: WBC imroving daily.cont to monitor.H/H,platelets better * . Review of Systems - Review of Systems Constitutional: fever, chills, weakness, malaise. negative: sweats, other ENT: negative: Ear Pain, Ear Discharge, Nose Pain, Nose Discharge, Nose Congestion, Mouth Pain, Mouth Swelling, Throat Pain, Throat Swelling, Other Respiratory: negative: Cough, Dry, Shortness of Breath, Hemoptysis, SOB with Excertion, Pleuritic Pain, Sputum, Wheezing Cardiovascular: negative: chest pain, palpitations, orthopnea, paroxysmal nocturnal dyspnea, edema, light headedness, other Gastrointestinal: negative: Nausea, Vomiting, Abdominal Pain, Diarrhea, Constipation, Melena, Hematochezia, Other Genitourinary: negative: Dysuria, Frequency, Incontinence, Hematuria, Retention , Other Musculoskeletal: negative: Neck Pain, Shoulder Pain, Arm Pain, Back Pain, Hand Pain, Leg Pain, Foot Pain, Other Skin: negative: Rash, Lesions, Reji, Bruising, Other Neurological: negative: Weakness, Numbness, Incoordination, Change in Speech, Confusion, Seizures, Other - Medications/Allergies Allergies/Adverse Reactions: Allergies Allergy/AdvReac Type Severity Reaction Status Date / Time iodine Allergy Verified 01/21/18 01:57 pantoprazole [From Protonix] Allergy Verified 01/21/18 01:57 povidone-iodine Allergy Verified 01/21/18 01:57 [From Betadine] soap [From Betadine] Allergy Verified 01/21/18 01:57 Medications: Current Medications Acetaminophen (Tylenol) 650 mg PO Q4H PRN PRN Reason: Headache/Fever or Mild Pain Last Admin: 01/28/18 15:17 Dose: 650 mg Albuterol/Ipratropium (Duoneb) 3 ml NEB Q3ME-ZA PRN PRN Reason: SOB &/or Wheezing Amlodipine Besylate (Norvasc) 10 mg PO DAILY [facility] Last Admin: 01/29/18 09:56 Dose: 10 mg Benzonatate (Tessalon) 100 mg PO TID [facility] Last Admin: 01/29/18 09:56 Dose: 100 mg Calcium Carbonate (Tums) 1,000 mg PO Q4H PRN PRN Reason: Heartburn or Indigestion Docusate Sodium (Colace) 100 mg PO BID [facility] Last Admin: 01/29/18 09:56 Dose: Not Given Famotidine (Pepcid) 20 mg PO DAILY [facility] Last Admin: 01/29/18 09:57 Dose: 20 mg Guaifenesin (Mucinex) 1,200 mg PO TID [facility] Last Admin: 01/29/18 09:57 Dose: 1,200 mg Guaifenesin/Codeine Phosphate (Robitussin Ac) 10 ml PO Q6H PRN PRN Reason: Cough Last Admin: 01/28/18 20:22 Dose: 10 ml Guaifenesin/Dextromethorphan (Robitussin Dm) 10 ml PO Q4H PRN PRN Reason: Cough Last Admin: 01/26/18 14:10 Dose: 10 ml Hydralazine HCl (Apresoline) 5 mg SLOW IVP Q4H PRN PRN Reason: SBP Greater Than 180 Cefepime HCl 2 gm/ Sodium (Chloride) 100 mls @ 200 mls/hr IVPB 1830 [facility] Last Admin: 01/28/18 20:22 Dose: 100 mls Micafungin Sodium 100 mg/ (Sodium Chloride) 100 mls @ 100 mls/hr IVPB Q24HR [facility] Last Admin: 01/28/18 17:38 Dose: 100 mls Vancomycin HCl 1.25 gm/ Sodium (Chloride) 250 mls @ 166.667 mls/hr IVPB 0900 [facility] Last Admin: 01/29/18 09:51 Dose: 250 mls Ibuprofen (Motrin) 400 mg PO Q6H PRN PRN Reason: Pain/fever Last Admin: 01/28/18 20:23 Dose: 400 mg Miscellaneous Medication (Pharmacy To Dose) 1 each IVPB PRN PRN PRN Reason: Pharmacy to dose Ondansetron HCl (Zofran Odt) 4 mg PO Q6H PRN PRN Reason: Nausea/Vomiting Ondansetron HCl (Zofran) 4 mg IVP Q6H PRN PRN Reason: Nausea/Vomiting Saccharomyces Boulardii (Florastor) 250 mg PO DAILY [facility] Last Admin: 01/29/18 09:58 Dose: 250 mg Senna (Senokot) 2 tab PO HSPRN PRN PRN Reason: Constipation Sodium Chloride (Flush - Normal Saline) 10 ml IVF Q12HR [facility] Last Admin: 01/29/18 09:58 Dose: 10 ml Sodium Chloride (Flush - Normal Saline) 10 ml IVF PRN PRN PRN Reason: Saline Flush Throat Lozenges (Cepastat Lozenges) 1 charmaine PO Q2H PRN PRN Reason: SORE THROAT/ COUGH Last Admin: 01/23/18 12:52 Dose: 1 charmaine
[2018-01-29] MEDS: Micafungin 100 MG in Sodium Chloride 0.9% 100 ML IVPB SCH (18:10)
[2018-01-29] MEDS: Cefepime 2 GM in Sodium Chloride 0.9% 100 ML IVPB SCH (19:15)
[2018-01-29] MEDS: Acetaminophen 325 MG TAB PO PRN (20:15)
[2018-01-30 07:07] LABS: Band 5 % (5-11); Hemoglobin 7.8 g/dL (12.0-16.0); Lymphocytes 12 % (21-51); MDiff Complete? YES; Mean Corpuscular HGB CONC 35.6 g/dL (32.0-36.0); Mean Platelet Volume 9.2 fL (7.4-10.4); Metamyelocyte 2 % (0-0); Monocytes 4 % (0-10); Myelocyte 1 % (0-0); Neutrophil 76 % (42-75); Platelet Count 126 thou/uL (130-400); RBC Distribution Width 11.5 % (11.5-14.5); Red Blood Cell (RBC) Count 2.17 mill/uL (4.20-5.40); White Blood Cell (WBC) Count 1.9 thou/uL (4.8-10.8)
[2018-01-30 07:48] VITALS: BP 105/70
[2018-01-30] MEDS: Vancomycin HCl 1.25 GM in Sodium Chloride 0.9% 250 ML 250 ML IVPB SCH (08:47)
[2018-01-30] MEDS: Benzonatate 100 MG CAP PO SCH ×2 (08:48→15:31)
[2018-01-30] MEDS: guaiFENesin/Codeine Phosphate 200 mg/20 mg 10 ml UD Cup PO PRN (08:48)
[2018-01-30] MEDS: Saccharomyces boulardii 250 MG CAP PO SCH (08:49)
[2018-01-30] MEDS: Amlodipine 10 MG TAB PO SCH (08:49)
[2018-01-30] MEDS: guaiFENesin ER 600 MG TAB PO SCH ×2 (08:49→15:31)
[2018-01-30] MEDS: Famotidine 20 MG TAB PO SCH (08:49)
[2018-01-30] MEDS: Docusate 100 MG CAP PO SCH (08:59)
--- NOTE | 2018-01-30 12:39 | PDOC.PN ---
- Subjective Encounter Start Date: 01/30/18 Encounter Start Time: 12:37 Subjective: no new complaints. discussed w nursing as pt sleeping - Objective Resuscitation Status: Resuscitation Status FULL:Full Resuscitation MAR Reviewed: Yes Vital Signs & Weight: Vital Signs (12 hours) Temp Pulse Resp BP Pulse Ox 01/30/18 09:07 100 01/30/18 08:49 82 01/30/18 07:47 98.9 F 82 16 105/70 98 01/30/18 07:34 98.9 F 86 16 98 01/30/18 04:00 99.5 F Weight Weight 138 lb 14.259 oz I&O: 01/29/18 01/30/18 01/31/18 06:59 06:59 06:59 Intake Total 120 2060 Balance 120 2059 Result Diagrams: 01/30/18 06:20 01/28/18 05:14 Additional Labs: Microbiology 01/28/18 18:26 Serum Cryptococcal Antigen - Final 01/27/18 15:54 Stool Stool Occult Blood (RADHA) - Final 01/20/18 19:34 Urine Straight Catheter Urine Culture - Final NO GROWTH AT 48 HOURS 01/20/18 18:35 Venous blood - Right Arm Blood Culture - Final NO GROWTH IN 5 DAYS 01/20/18 18:30 Venous blood - Right Hand Blood Culture - Final Escherichia coli 01/29/18 09:05 Urine clean catch Urine Culture - Preliminary NO GROWTH AT 24 HOURS 01/29/18 08:11 Venous blood - Left Arm Blood Culture - Preliminary Specimen has been received and culture in progress. No Growth to date. 01/29/18 08:11 Port - Right Subclavian Vein Blood Culture - Preliminary Specimen has been received and culture in progress. No Growth to date. Laboratory Tests 01/21/18 01/22/18 01/23/18 05:20 03:40 08:35 WBC 0.2 L* 0.4 L* 0.3 L* 01/24/18 01/25/18 01/26/18 03:52 08:56 03:20 WBC 0.4 L* 1.0 L 1.4 L 01/27/18 01/28/18 01/29/18 06:10 09:33 06:40 WBC 1.5 L 1.6 L 1.5 L 01/29/18 01/30/18 09:00 06:20 WBC 1.7 L 1.9 L labs reviewed Phys Exam - Physical Examination Constitutional: NAD Neck: no JVD Respiratory: no wheezing, no rales, no rhonchi, clear to auscultation bilateral Cardiovascular: RRR, no significant murmur Gastrointestinal: soft, no distention, positive bowel sounds Musculoskeletal: no edema, pulses present Neurological: moves all 4 limbs Skin: no rash Dx/Plan (1) Sepsis Code(s): A41.9 - SEPSIS, UNSPECIFIED ORGANISM Status: Resolved Qualifiers: Sepsis type: Escherichia coli Qualified Code(s): A41.51 - Sepsis due to Escherichia coli [E. coli] (2) E coli bacteremia Code(s): R78.81 - BACTEREMIA Status: Acute (3) Neutropenic fever Code(s): D70.9 - NEUTROPENIA, UNSPECIFIED; R50.81 - FEVER PRESENTING WITH CONDITIONS CLASSIFIED ELSEWHERE Status: Acute Comment: Continue IV cefepime and micafungin added. (4) HTN (hypertension) Code(s): I10 - ESSENTIAL (PRIMARY) HYPERTENSION Status: Chronic Comment: Controlled and at goal (5) Lymphoma Status: Chronic Comment: s/p chemotherapy at [place], await records (6) Pancytopenia due to chemotherapy Code(s): D61.810 - ANTINEOPLASTIC CHEMOTHERAPY INDUCED PANCYTOPENIA Status: Chronic Comment: improving - Plan PT/OT, respiratory therapy, incentive spirometry, out of bed/ambulate, DVT proph w/SCDs Low grade fever perisists.re cultured yesterday.Vanco added -: cont cefepime & micafungin. -: discussed w ID ,Dr. crawford will re evaluate -: fever might be secd to underlying maliganancy -: neutropenia resolved.all counts improving.monitor * . Review of Systems - Review of Systems Other: unable to obtain as pt sleeping after being awake all night last night due to cough - Medications/Allergies Allergies/Adverse Reactions: Allergies Allergy/AdvReac Type Severity Reaction Status Date / Time iodine Allergy Verified 01/21/18 01:57 pantoprazole [From Protonix] Allergy Verified 01/21/18 01:57 povidone-iodine Allergy Verified 01/21/18 01:57 [From Betadine] soap [From Betadine] Allergy Verified 01/21/18 01:57 Medications: Current Medications Acetaminophen (Tylenol) 650 mg PO Q4H PRN PRN Reason: Headache/Fever or Mild Pain Last Admin: 01/29/18 20:15 Dose: 650 mg Albuterol/Ipratropium (Duoneb) 3 ml NEB [id number] PRN PRN Reason: SOB &/or Wheezing Amlodipine Besylate (Norvasc) 10 mg PO DAILY [facility] Last Admin: 01/30/18 08:49 Dose: 10 mg Benzonatate (Tessalon) 100 mg PO TID [facility] Last Admin: 01/30/18 08:48 Dose: 100 mg Calcium Carbonate (Tums) 1,000 mg PO Q4H PRN PRN Reason: Heartburn or Indigestion Docusate Sodium (Colace) 100 mg PO BID [facility] Last Admin: 01/30/18 08:59 Dose: Not Given Famotidine (Pepcid) 20 mg PO DAILY [facility] Last Admin: 01/30/18 08:49 Dose: 20 mg Guaifenesin (Mucinex) 1,200 mg PO TID [facility] Last Admin: 01/30/18 08:49 Dose: 1,200 mg Guaifenesin/Codeine Phosphate (Robitussin Ac) 10 ml PO Q6H PRN PRN Reason: Cough Last Admin: 01/30/18 08:48 Dose: 10 ml Guaifenesin/Dextromethorphan (Robitussin Dm) 10 ml PO Q4H PRN PRN Reason: Cough Last Admin: 01/26/18 14:10 Dose: 10 ml Hydralazine HCl (Apresoline) 5 mg SLOW IVP Q4H PRN PRN Reason: SBP Greater Than 180 Cefepime HCl 2 gm/ Sodium (Chloride) 100 mls @ 200 mls/hr IVPB 1830 [facility] Last Admin: 01/29/18 19:15 Dose: 100 mls Micafungin Sodium 100 mg/ (Sodium Chloride) 100 mls @ 100 mls/hr IVPB Q24HR [facility] Last Admin: 01/29/18 18:10 Dose: 100 mls Vancomycin HCl 1.25 gm/ Sodium (Chloride) 250 mls @ 166.667 mls/hr IVPB 0900 [facility] Last Admin: 01/30/18 08:47 Dose: 250 mls Ibuprofen (Motrin) 400 mg PO Q6H PRN PRN Reason: Pain/fever Last Admin: 01/28/18 20:23 Dose: 400 mg Miscellaneous Medication (Pharmacy To Dose) 1 each IVPB PRN PRN PRN Reason: Pharmacy to dose Ondansetron HCl (Zofran Odt) 4 mg PO Q6H PRN PRN Reason: Nausea/Vomiting Ondansetron HCl (Zofran) 4 mg IVP Q6H PRN PRN Reason: Nausea/Vomiting Saccharomyces Boulardii (Florastor) 250 mg PO DAILY [facility] Last Admin: 01/30/18 08:49 Dose: 250 mg Senna (Senokot) 2 tab PO HSPRN PRN PRN Reason: Constipation Sodium Chloride (Flush - Normal Saline) 10 ml IVF Q12HR [facility] Last Admin: 01/30/18 08:48 Dose: 10 ml Sodium Chloride (Flush - Normal Saline) 10 ml IVF PRN PRN PRN Reason: Saline Flush Throat Lozenges (Cepastat Lozenges) 1 charmaine PO Q2H PRN PRN Reason: SORE THROAT/ COUGH Last Admin: 01/23/18 12:52 Dose: 1 charmaine
[2018-01-30 16:05] VITALS: TEMP 98.5
--- NOTE | 2018-01-30 18:57 | DIS ---
DATE OF ADMISSION: 01/21/2018 DATE OF DISCHARGE: 01/30/2018 CONDITION AT THE TIME OF DISCHARGE: Stable and improved. DISCHARGE DISPOSITION: Home with [facility]. DISCHARGE DIAGNOSES: 1. Sepsis. 2. Neutropenic fever, resolved. 3. Escherichia coli bacteremia. 4. History of lymphoma. 5. Hypertension. 6. Pancytopenia secondary to chemotherapy, improving. PRIMARY CARE PHYSICIAN: Dr. Manish Dejesus, out of town. DISCHARGE FOLLOWUP: 1. PCP. 2. Infectious Disease, Dr. Jones. INHOUSE CONSULTATIONS: 1. Infectious Disease, Dr. Jones. 2. Oncology, Dr. Schmitt. PROCEDURES DONE IN THE HOSPITAL: Ultrasound of the lower extremities which is negative and multiple chest x-rays which are negative for any pneumonia. HISTORY OF PRESENTING ILLNESS: Ms. Eva Keller is a very pleasant 87-year-old female with past medic al history of lymphoma, currently on chemotherapy; and history of colon cancer, status post surgery a nd chemo in 1999; who presented to the emergency room with complaints of generalized weakness. Upon presentation, she was febrile with a fever of 101.2. She was started empirically on IV antibiotics a nd IV fluids. Her CBC showed significant pancytopenia with WBC count 0.1, hemoglobin 9.8, platelet c ount of 14. Chest x-ray was negative for infiltrate. Lactic acid was elevated to 2.5. Urinalysis w as unremarkable. Cultures were sent. Please see admission history and physical for further details. HOSPITAL COURSE: Oncology and Infectious Disease specialist was consulted. The patient has slow imp rovement in her symptoms and her blood counts. Her cultures were followed and she did have E. coli i n one of the blood cultures drawn on 01/20/2018. This was sensitive to cephalosporins, but resistant to penicillin and ciprofloxacin. The patient continued to have low grade fever for which reason micafungin was also added and later va ncomycin. Cultures were repeated along with the line culture and repeat blood culture and urine cult ure and line culture remained negative. This was discussed with Infectious Disease and Dr. Jones' recommendation was that persistent low grad e fever is likely secondary to lymphoma, which is most likely the reason in my opinion as well. The patient had no clinical signs and symptoms of infection for the last several days prior to discharge and has been feeling very well despite the fever. She is eating and drinking okay. She denies any c hest pain, shortness of breath. She has a chronic dry cough, but no phlegm production. Chest x-rays were repeated and remained negative for infiltrate. Because of this, decision was made that she is stable to be discharged on oral antibiotic. She was g iven cefpodoxime for discharge for 10 more days and follow up with Dr. Jones. She was seen and examined prior to discharge. Please see hospitalist progress note from today's date for further detail including [id number] interaction. Total time spent in the discharge of this patient 35 minutes.
== END 2018-01-30 18:30 | disposition home health service (06) | DRG 871 ==
LOC: ERS 22:46 → ONC 01-21 00:01 → OBSVTOIN 01-21 00:37
PROVIDERS: ADMIT Internal Medicine; ATTEND Internal Medicine
PROC: 30233N1 Transfusion of Nonautologous Red Blood Cells into Peripheral Vein, Percutaneous Approach (ICD-10-PCS; principal; 2018-01-21)
DX: A41.51 Sepsis due to Escherichia coli [E. coli] (principal); D61.810 Antineoplastic chemotherapy induced pancytopenia; C85.90 Non-Hodgkin lymphoma, unspecified, unspecified site; R65.20 Severe sepsis without septic shock; I12.9 Hypertensive chronic kidney disease with stage 1 through stage 4 chronic kidney disease, or unspecified chronic kidney disease; N18.2 Chronic kidney disease, stage 2 (mild); R50.81 Fever presenting with conditions classified elsewhere; T45.1X5A Adverse effect of antineoplastic and immunosuppressive drugs, initial encounter; Z85.038 Personal history of other malignant neoplasm of large intestine; W01.0XXA Fall on same level from slipping, tripping and stumbling without subsequent striking against object, initial encounter; Y92.009 Unspecified place in unspecified non-institutional (private) residence as the place of occurrence of the external cause
CPT/HCPCS: 36415; 36430; 71045; 80048; 80053; 80202; 82274; 83605; 83735; 84100; 85007; 85025; 85027; 86850; 86900; 86901; 87040; 87086; 87385; 87899; 93970; 94640; 99285; A4216; G8978-GP-CL; G8979-GP-CJ; G8987-GO-CI; G8988-GO-CI; G8989-GO-CI; J0692; J1642; J2248; J3370; J3475; J7050; J7620; P9035

== ENCOUNTER 2018-04-03 21:12 | Observation (INO) | payer MEDICARE, OTHER ==
[2018-04-03 22:22] LABS: Mean Corpuscular Hemoglobin 35.5 pg (27.0-31.0); Mean Corpuscular Volume 98.7 fL (78.0-98.0); RBC Distribution Width 13.2 % (11.5-14.5); Red Blood Cell (RBC) Count 3.37 mill/uL (4.20-5.40); White Blood Cell (WBC) Count 4.6 thou/uL (4.8-10.8)
[2018-04-03 22:37] LABS: Lactic Acid 2.1 mmol/L (0.5-2.2)
[2018-04-03 22:38] LABS: ALT (SGPT) 19 U/L (8-55); AST (SGOT) 21 U/L (5-34); Albumin 4.2 g/dL (3.4-4.8); Alkaline Phosphatase 79 U/L (40-150); Anion Gap 12 mmol/L (10-20); BUN (Urea Nitrogen) 12 mg/dL (9.8-20.1); Bilirubin, Total 0.5 mg/dL (0.2-1.2); CK (CPK) 50 U/L (29-168); Calc. Creatinine Clearance 0 mL/min (70-130); Calcium 9.3 mg/dL (7.8-10.44); Carbon Dioxide 25 mmol/L (23-31); Chloride 104 mmol/L (98-107); Estimated GFR-MDRD 83; Globulin 2.3 g/dL (2.4-3.5); Glucose 117 mg/dL (83-110); Lipase 20 U/L (8-78); Potassium 3.4 mmol/L (3.5-5.1); Protein, Total 6.5 g/dL (6.0-8.3); Sodium 138 mmol/L (136-145)
[2018-04-03 22:39] LABS: #Eosinphils 0.1 thou/uL (0.0-0.7); #Lymphocytes 0.6 thou/uL (1.20-3.40); #Monocytes 0.4 thou/uL (0.11-0.59); #Neutrophils 3.5 thou/uL (1.40-6.50); %Basophils 0.3 % (0.0-1.0); %Eosinophils 1.3 % (0.0-10.0); %Lymphocytes 12.6 % (21.0-51.0); %Monocytes 8.1 % (0.0-10.0); %Neutrophils 77.8 % (42.0-75.0); Mean Platelet Volume 9.2 fL (7.4-10.4); PLT Morphology Comment Appears Decreased; Platelet Count 99 thou/uL (130-400)
[2018-04-03 22:42] LABS: CKMB 2.5 ng/mL (0-6.6); Troponin I 0.013 ng/mL (< 0.028)
--- NOTE | 2018-04-03 22:52 | RAD ---
CHEST ONE VIEW: History: Chest pain. Comparison: 01-26-18 FINDINGS: Cardiac silhouette is magnified by projection. Pulmonary vasculature is upper limits of normal. Lung makings extend beyond the skin fold of the left lateral chest that mimics a pneumothorax. Mediastinum is midline with aortic calcification and a right Mediport. No lobar consolidation or evidence of pne umothorax. IMPRESSION: 1. Atherosclerosis. 2. No active cardiopulmonary abnormalities are otherwise demonstrated. POS: THADDEUS
--- NOTE | 2018-04-03 22:54 | CT ---
CT HEAD NONCONTRAST: History: Dizziness, altered mental status. Comparison: 04-09-15 FINDINGS: There is no evidence of acute intracranial hemorrhage or infarct. Mild diffuse cortical atrophy and c hronic ischemic small vessel disease. There is no mass effect or shift of midline structures. Visuali zed paranasal sinuses remain well aerated. IMPRESSION: Chronic type findings are stable. No acute intracranial abnormalities are demonstrated on noncontrast CT head. POS: H
[2018-04-03 23:21] LABS: Bilirubin Negative (Negative); Blood, Urine Negative (Negative); Clarity CLEAR (Clear); Glucose, Urine (Dipstick) Negative (Negative); Leukocyte Negative (Negative); Nitrite Negative (Negative); Protein, Urine (Dipstick) Trace mg/dL (Neg-Trace); Specific Gravity, Urine 1.015 (1.002-1.036)
--- NOTE | 2018-04-04 01:42 | PDOC.FPRHP ---
- History of Present Illness Chief Complaint: lightheadedness and imbalance History of Present Illness: Ms. Keller is a very pleasant 86YO female with a PMH significant for recently diagnosed lymphoma s/p chemo & a remote h/o CRC who presented to the ED with a chief complaint of lightheadedness and "imbalance" that she states has been ongoing for the last week. The patient stated that she has been very forgetful over the last week and has trouble remembering things that have happened only 20 minutes ago. However, she was able to tell us that for the last week she just hasn't felt quite right or like her normal self. She reports that yesterday she was seen in an outside ER in [place] after having a "spell" that she describes as feeling nauseous and lightheaded and off balance. She states that she was only released from their ED so that she could make her scheduled appointment with her new oncologist today. However, she had another "spell" today which prompted her to come to our ED. The patient stated that when she tried to get out of bed today, she fell back on the bed and felt very short of breath. She also got very nauseous and was dry heaving. The patient stated that she just felt very off balance and wanted to come get evaluated in the ED. She denies any LOC or head trauma. She also endorses a headache yesterday over the right side of her head and face that she states lasted ~4-5 hours yesterday while in the outside ED. Lastly, the patient endorses some associated blurry vision. She denies any fever, chills, changes in appetite, chest pain or weakness. ED Course: Patient was given a 500mL bolus of NS. - Allergies/Adverse Reactions Allergies Allergy/AdvReac Type Severity Reaction Status Date / Time iodine Allergy Verified 01/21/18 01:57 pantoprazole [From Protonix] Allergy Verified 01/21/18 01:57 povidone-iodine Allergy Verified 01/21/18 01:57 [From Betadine] soap [From Betadine] Allergy Verified 01/21/18 01:57 - Home Medications Medication Instructions Recorded Confirmed Type Amlodipine [Norvasc] 10 mg PO DAILY 01/21/18 04/04/18 History - History PMHx: h/o lymphoma diagnosed this September s/p chemo treatment, remote h/o CRC s /p partial colectomy, HTN PSHx: partial colectomy FHx: None. Social: Lives alone at [facility]. Has 2 dogs and 6 cats. Former smoker. Quit in 1971 and only smoked for 8 years before quitting. No EtOH or drug use. - Review of Systems General: denies: fever/chills, weight/appetite/sleep changes Eyes: reports: vision changes. denies: eye pain ENT: denies: nasal congestion Respiratory: reports: shortness of breath. denies: cough Cardiovascular: denies: chest pain, edema Gastrointestinal: reports: nausea. denies: vomiting, diarrhea, constipation, abdominal pain Genitourinary: reports: incontinence. denies: dysuria, polyuria Skin: denies: rashes, lesions Musculoskeletal: denies: pain Neurological: denies: numbness, syncope, weakness - Vital signs BP: 150/67 HR: 74 RR: 20 Tmax: 98.5F Pox: 100% on RA Wt: 60.33kg - Physical Exam Constitutional: NAD, awake, alert and oriented (A&Ox3), well developed HEENT: normocephalic and atraumatic, PERRLA, conjunctiva clear, grossly normal vision, grossly normal hearing, oropharynx clear Neck: supple, FROM, other (Large, fixed adenopathy in R anterior node consistent w/ lymphoma) Chest: no-tender to palpation Heart: RRR, normal S1/S2, no murmurs/rubs/gallops, pulses present, no edema Lungs: CTAB, no respiratory distress, good air movement, no rales/rhonchi, no wheezing Abdomen: soft, non-tender, bowel sounds present, no masses/distention Musculoskeletal: normal structure, normal tone, ROM grossly normal Neurological: no focal deficit, CN II-XII intact, normal sensation Skin: no rash/lesions, good turgor Heme/Lymphatic: no unusual bruising or bleeding, other (Ecchymosis over right dorsal hand) Psychiatric: normal mood and affect, good judgment and insight, other (mildly imparied recent & remote memory) FMR H&P: Results - Labs Result Diagrams: 04/04/18 06:09 04/04/18 06:08 Lab results: WBC 4.6 thou/uL (4.8-10.8) L 04/03/18 22:13 Hgb 12.0 g/dL (12.0-16.0) 04/03/18 22:13 Hct 33.3 % (36.0-47.0) L 04/03/18 22:13 MCV 98.7 fL (78.0-98.0) H 04/03/18 22:13 Plt Count 99 thou/uL (130-400) L 04/03/18 22:13 Neutrophils % 77.8 % (42.0-75.0) H 04/03/18 22:13 Sodium 138 mmol/L (136-145) 04/03/18 22:13 Potassium 3.4 mmol/L (3.5-5.1) L 04/03/18 22:13 Chloride 104 mmol/L (98-107) 04/03/18 22:13 Carbon Dioxide 25 mmol/L (23-31) 04/03/18 22:13 BUN 12 mg/dL (9.8-20.1) 04/03/18 22:13 Creatinine 0.67 mg/dL (0.6-1.1) 04/03/18 22:13 Glucose 117 mg/dL (83-110) H 04/03/18 22:13 Lactic Acid 2.1 mmol/L (0.5-2.2) 04/03/18 22:13 Calcium 9.3 mg/dL (7.8-10.44) 04/03/18 22:13 Total Bilirubin 0.5 mg/dL (0.2-1.2) 04/03/18 22:13 AST 21 U/L (5-34) 04/03/18 22:13 ALT 19 U/L (8-55) 04/03/18 22:13 Alkaline Phosphatase 79 U/L (40-150) 04/03/18 22:13 Creatine Kinase 50 U/L (29-168) 04/03/18 22:13 CK-MB (CK-2) 2.5 ng/mL (0-6.6) 04/03/18 22:13 Serum Total Protein 6.5 g/dL (6.0-8.3) 04/03/18 22:13 Albumin 4.2 g/dL (3.4-4.8) 04/03/18 22:13 Lipase 20 U/L (8-78) 04/03/18 22:13 Urine Ketones Negative mg/dL (Negative) 04/03/18 23:12 Urine Blood Negative (Negative) 04/03/18 23:12 Urine Nitrite Negative (Negative) 04/03/18 23:12 Ur Leukocyte Esterase Negative (Negative) 04/03/18 23:12 - Radiology Interpretation Chest x-ray Status: report reviewed by me (WNL) CT scan - head Status: report reviewed by me (WNL) FMR H&P: A/P - Problem List (1) Encephalopathy Current Visit: Yes Status: Acute Code(s): G93.40 - ENCEPHALOPATHY, UNSPECIFIED (2) Lymphoma Current Visit: Yes Status: Chronic Comment: s/p chemotherapy at [place], await records (3) HTN (hypertension) Current Visit: Yes Status: Chronic Code(s): I10 - ESSENTIAL (PRIMARY) HYPERTENSION Comment: Controlled and at goal - Plan 86YOF w/ PMH significant for lymphoma s/p chemotherapy & remote CRC who presented to the ED with a chief complaint of episodic lightheadedness and imbalance that has been ongoing for the last week. 1. Encephalopathy 2/2 brain metastasis vs. infection vs. nutritional deficiencies vs chemo. - CT brain negative for any acute findings or mass effect from possible met. Will consider MRI in the AM but PE not significant for any neurological deficits. - Viral vs. bacterial infection is possible given patient's IC state, however, vitals have been WNL since admission with exception of slightly elevated BPs after getting a 500mL fluid bolus. Also, CXR and UA were negative and patient has no other obvious source of infection. - Urine culture pending. - Will order a B12 & B1 to r/o other organic causes that have not already been ruled out with routine labs. - Will consider ordering a UDS to r/o toxic causes. - Chemo toxicity could cause AMS; however less likely as patient has not had a chemo treatment since November. - Will continue to monitor vitals and mental status. Patient was A&Ox3 during exam but forgetful about recent events. 2. Lightheadedness: - Patient's history most consistent with orthostasis; however could be 2/2 poor PO intake. - Ordered orthostatics to be taken with routine vitals. - Will continue to monitor VS closely. - PT consult ordered to evaluate functional status. 2. h/o lymphoma: - Aware. Patient follows closely with an oncologist and is s/p chemo treatment. 3. h/o CRC s/o partial colectomy: - Aware. FMR H&P: Upper Level - Pertinent history Eva Keller is an 87 year old female with a history of lymphoma who presents to the ED with a chief complaint of forgetfulness, weakness and lightheadedness. She reports that forgetfulness over the past 2 days. She complains of lightheadedness/feeling off-balance over the past week. More specifically, she had 2 spells where she became lightheaded after getting up from a supine position. She also reports nausea and blurry vision. She had an episode of headache yesterday that lasted 5 hours, denies headache today. Per ED physician pt was reporting chest pain earlier this evening, buy pt denies chest pain currently. After negative workup in the ED, pt was admitted due to concern for chest pain, and to be evaluated for possible mets to the brain. She has a history lf Lymphoma for which she is currently undergoing chemotherapy. Last chemo treatment was in November 2017. Chemo was interrupted when she was hospitalized for neutropenic fever 2 months ago. Pt was seen at an outside ER yesterday and treated for nausea and vomiting and discharged with follow-up to her oncologist. - Pertinent findings Physical Exam: General: alert and oriented x 3; in no apparent distress Heart: regular rate and rhythm, no murmurs, rubs or gallops Lungs: clear to auscultation bilaterally. No crackles, wheezes, or rhonchi. Neuro: CN II-XII intact grossly; no focal motor or sensory deficits; Strength 5/ [address] head: no acute intracranial findings. UA wnl. CBC: wbc - 4.7 - Plan Date/Time: 04/04/18 0137 Alissa Wilks, have evaluated this patient and agree with findings/plan as outlined by internet sales consultant resident. Pertinent changes/additions are listed here. poAcute Encephalopathy - manifested by forgetfullness which pt states is different from normal. - differentials include: infection, electrolyte imbalance, intoxication, dementia - no evidence for infection thus far. CMP wnl. - will add on UDS, TSH, B12, B1, Folate. Near-Syncope. - likely related to orthostasis; will add on orthostatic vitals. History of Lymphoma - Pt has upcoming appointment with oncologist to discuss whether to resume chemo Hypertension - continue home meds - will continue to monitor BP Thrombocytopenia - possibly related to chemotherapy, although pt is 4 months out. - will repeat CBC in AM. Attending Addendum - Attending Addendum Date/Time: 04/04/18 1030 I personally evaluated the patient and discussed the management with Dr. Fry/ Armaan. I agree with the History, Examination, Assessment and Plan documented above with any addition or exceptions noted below. Patient is 87 yo with history of CRC and more recently lymphoma who is on a break from chemotherapy until she establishes with new Oncologist who presents with episodes of lightheadedness and subjective report of noticeable memory loss that she reports is new for her. She otherwise denies other complaints and reports her symptoms are overall transient and short lived. Her exam is overall benign. Vitals stable. CT scan does not show any new brain lesion or brain lesion that would precipitate her symptoms. Labs also are non revealing. Patient will be observed through the day to see if any labs return with a suggestion of her symptoms. Check orthostatics. This could be chemotherapy effect that would need to be addressed with her oncologist. No evidence for infection or inflammatory process going on. Does not appear related to dementia or intrinsic neurological disease. Not post-ictal. Continue monitoring after IV fluid hydration and reassess for possible discharge this afternoon or tomorrow morning if no major abnormalities found.
[2018-04-04 02:12] LABS: Troponin I Less than 0.010 ng/mL (< 0.028)
[2018-04-04 04:55] LABS: Troponin I 0.018 ng/mL (< 0.028)
[2018-04-04] MEDS ORDERED: Ondansetron HCl/PF 4 MG/2 ML Vial IVP PRN (05:49)
[2018-04-04] MEDS ORDERED: Ondansetron ODT 4 MG TAB PO PRN (05:49)
[2018-04-04 05:54] VITALS: BMI 23.3
--- NOTE | 2018-04-04 05:57 | PDOC.FM ---
- Subjective Subjective: No acute events overnight. Reports forgetfulness but no headaches, no chest pain , no SOB. - Objective MAR Reviewed: Yes Vital Signs & Weight: Vital Signs (12 hours) Temp Pulse Resp BP Pulse Ox 04/04/18 05:54 97.8 F 70 18 179/75 H 100 Weight Weight 59.783 kg Result Diagrams: 04/04/18 06:09 04/04/18 06:08 <Riana Hodges - Last Filed: 04/04/18 09:10> - Objective Vital Signs & Weight: Vital Signs (12 hours) Temp Pulse Resp BP BP Pulse Ox 04/04/18 08:49 95 178/71 H 04/04/18 08:00 97.6 F 95 18 176/70 H 98 04/04/18 06:04 97.8 F 70 18 179/75 H 100 04/04/18 05:54 97.8 F 70 18 179/75 H 100 Weight Weight 59.783 kg Result Diagrams: 04/04/18 06:09 04/04/18 06:08 <Roberto Saavedra - Last Filed: 04/04/18 12:11> Phys Exam - Physical Examination Constitutional: NAD dry mucosal membranes Neck: no nodes right anterior cervical lymphadneopathy Respiratory: clear to auscultation bilateral Cardiovascular: RRR, no significant murmur Gastrointestinal: non-tender, positive bowel sounds Musculoskeletal: no edema, edema present Neurological: non-focal, moves all 4 limbs Psychiatric: normal affect, A&O x 3 Skin: no rash, normal turgor <Riana Hodges - Last Filed: 04/04/18 09:10> Dx/Plan (1) Near syncope Status: Acute (2) Encephalopathy Code(s): G93.40 - ENCEPHALOPATHY, UNSPECIFIED Status: Acute (3) HTN (hypertension) Code(s): I10 - ESSENTIAL (PRIMARY) HYPERTENSION Status: Chronic (4) Lymphoma Status: Chronic (5) Thrombocytopenia Code(s): D69.6 - THROMBOCYTOPENIA, UNSPECIFIED Status: Acute - Plan Plan: 87 yo F with h/o of lymphoma s/p chemotherapy with h/o CRC and colectomy here with reported change in baseline of mental status and near-syncopal episodes Acute encephalopathy -ddx: brain mets vs. infection vs. drug intoxication vs. alzheimers dementia -can consider brain MRI to assess for mets Plan: pending TSH, b1, b12, UDS to r/o other causes Near syncopal episdodes -orthostatic vs. vasovagal Plan: check orthostatics Hypokalemia -3.4 this am- replacd -will check mg HTN -hypertensive with SBP 150 on admission -BPs currently stable -Continue home amlodipine Thrombocytopenia -possibly secondary to chemo -no active signs of bleeding, monitor for now Hx of Lymphoma, s/p chemo -unable to finish last chemo session in November 2017 due to development of neutropenic fever Dispo: PT consulted to assess, awaiting recs. Plans to reschedule appt with [facility] oncologist to assess for continuation of chemotherapy discussed with dr. saavedra <Riana Hodges - Last Filed: 04/04/18 09:10> Attending Addendum - Attending Addendum Date/Time: 04/04/18 1211 I personally evaluated the patient and discussed the management with Dr. Hodges. I agree with the History, Examination, Assessment and Plan documented above with any addition or exceptions noted below. Please see attending note on H&P dated 04/04/18 for full details. <Roberto aSavedra - Last Filed: 04/04/18 12:11>
[2018-04-04 06:49] LABS: #Eosinphils 0.1 thou/uL (0.0-0.7); #Lymphocytes 0.7 thou/uL (1.20-3.40); #Monocytes 0.4 thou/uL (0.11-0.59); #Neutrophils 2.1 thou/uL (1.40-6.50); %Basophils 0.5 % (0.0-1.0); %Lymphocytes 20.5 % (21.0-51.0); %Monocytes 12.3 % (0.0-10.0); %Neutrophils 63.7 % (42.0-75.0); Hemoglobin 11.4 g/dL (12.0-16.0); Mean Corpuscular HGB CONC 35.4 g/dL (32.0-36.0); Mean Corpuscular Hemoglobin 34.9 pg (27.0-31.0); Mean Corpuscular Volume 98.4 fL (78.0-98.0); Mean Platelet Volume 8.6 fL (7.4-10.4); Platelet Count 103 thou/uL (130-400); RBC Distribution Width 13.2 % (11.5-14.5); Red Blood Cell (RBC) Count 3.26 mill/uL (4.20-5.40); White Blood Cell (WBC) Count 3.2 thou/uL (4.8-10.8)
[2018-04-04 07:07] LABS: ALT (SGPT) 17 U/L (8-55); AST (SGOT) 19 U/L (5-34); Albumin 3.8 g/dL (3.4-4.8); Alkaline Phosphatase 72 U/L (40-150); Anion Gap 11 mmol/L (10-20); BUN (Urea Nitrogen) 10 mg/dL (9.8-20.1); Bilirubin, Total 0.4 mg/dL (0.2-1.2); Calc. Creatinine Clearance 59 mL/min (70-130); Calcium 9.3 mg/dL (7.8-10.44); Carbon Dioxide 27 mmol/L (23-31); Chloride 107 mmol/L (98-107); Estimated GFR-MDRD 89; Globulin 2.2 g/dL (2.4-3.5); Glucose 100 mg/dL (83-110); Potassium 3.4 mmol/L (3.5-5.1); Sodium 142 mmol/L (136-145)
[2018-04-04] MEDS: Amlodipine 10 MG TAB PO SCH (08:49)
[2018-04-04] MEDS: Benzonatate 100 MG CAP PO SCH ×3 (08:49→20:23)
[2018-04-04] MEDS ORDERED: Potassium Chloride 20 MEQ TAB PO SCH (09:30)
[2018-04-04 17:33] LABS: Free T4 (Free Thyroxine) 0.86 ng/dL (0.70-1.48)
[2018-04-04] MEDS: Acetaminophen 325 MG TAB PO PRN (20:51)
[2018-04-05] MEDS: Acetaminophen 325 MG TAB PO PRN ×2 (01:34→05:53)
[2018-04-05] MEDS ORDERED: traMADol HCl 50 MG TAB PO SCH ×2 (03:15→03:30)
[2018-04-05 05:03] LABS: ALT (SGPT) 16 U/L (8-55); AST (SGOT) 18 U/L (5-34); Albumin 3.7 g/dL (3.4-4.8); Alkaline Phosphatase 74 U/L (40-150); Anion Gap 10 mmol/L (10-20); BUN (Urea Nitrogen) 12 mg/dL (9.8-20.1); Bilirubin, Total 0.4 mg/dL (0.2-1.2); Calc. Creatinine Clearance 60 mL/min (70-130); Calcium 9.5 mg/dL (7.8-10.44); Carbon Dioxide 25 mmol/L (23-31); Chloride 105 mmol/L (98-107); Estimated GFR-MDRD Greater than 90; Globulin 2.2 g/dL (2.4-3.5); Glucose 118 mg/dL (83-110); Potassium 3.8 mmol/L (3.5-5.1); Protein, Total 5.9 g/dL (6.0-8.3); Sodium 136 mmol/L (136-145)
[2018-04-05 05:18] LABS: #Eosinphils 0.1 thou/uL (0.0-0.7); #Lymphocytes 0.7 thou/uL (1.20-3.40); #Monocytes 0.5 thou/uL (0.11-0.59); #Neutrophils 2.8 thou/uL (1.40-6.50); %Basophils 0.4 % (0.0-1.0); %Eosinophils 2.4 % (0.0-10.0); %Lymphocytes 16.5 % (21.0-51.0); %Monocytes 12.4 % (0.0-10.0); %Neutrophils 68.3 % (42.0-75.0); Hemoglobin 11.8 g/dL (12.0-16.0); Mean Corpuscular Hemoglobin 35.2 pg (27.0-31.0); Mean Corpuscular Volume 97.8 fL (78.0-98.0); Mean Platelet Volume 9.3 fL (7.4-10.4); Platelet Count 108 thou/uL (130-400); RBC Distribution Width 13.3 % (11.5-14.5); Red Blood Cell (RBC) Count 3.35 mill/uL (4.20-5.40)
[2018-04-05] MEDS ORDERED: Ibuprofen 600 MG TAB PO SCH (05:45)
[2018-04-05] MEDS: Amlodipine 10 MG TAB PO SCH (08:18)
[2018-04-05] MEDS: Benzonatate 100 MG CAP PO SCH (08:19)
[2018-04-05] MEDS ORDERED: Cyclobenzaprine 10 MG TAB PO SCH (08:45)
--- NOTE | 2018-04-05 08:48 | PDOC.FM ---
- Subjective Subjective: Complains of right neck, shoudler, neck pain. Usually experiences this but worse this time around. Hasn't been relieved by two doses of ultram. Denies chest pain, headche, fevers ,chills. - Objective MAR Reviewed: Yes Vital Signs & Weight: Vital Signs (12 hours) Temp Pulse Resp BP BP BP BP 04/05/18 08:18 69 132/70 04/05/18 08:01 98.0 F 69 12 150/75 H 132/70 155/53 H 04/05/18 04:00 97.8 F 75 18 187/76 H 04/05/18 00:00 98.5 F 71 18 156/70 H Pulse Ox 04/05/18 08:18 04/05/18 08:01 97 04/05/18 04:00 97 04/05/18 00:00 98 Weight Admit Weight 59.783 kg Weight 59.221 kg I&O: 04/04/18 04/05/18 04/06/18 06:59 06:59 06:59 Intake Total 1520 Balance 1520 Result Diagrams: 04/05/18 03:59 04/05/18 03:58 <Riana Hodges - Last Filed: 04/05/18 08:44> - Objective Vital Signs & Weight: Vital Signs (12 hours) Temp Pulse Resp BP BP BP BP 04/05/18 11:38 97.8 F 77 12 152/77 H 04/05/18 08:18 69 132/70 04/05/18 08:01 98.0 F 69 12 150/75 H 132/70 155/53 H 04/05/18 08:00 98.0 F 69 12 04/05/18 04:00 97.8 F 75 18 187/76 H Pulse Ox 04/05/18 11:38 96 04/05/18 08:18 04/05/18 08:01 97 04/05/18 08:00 97 04/05/18 04:00 97 Weight Admit Weight 59.783 kg Weight 59.221 kg I&O: 04/04/18 04/05/18 04/06/18 06:59 06:59 06:59 Intake Total 1520 Balance 1520 Result Diagrams: 04/05/18 03:59 04/05/18 03:58 <Roberto Saavedra R - Last Filed: 04/05/18 12:04> Phys Exam - Physical Examination Constitutional: NAD HEENT: moist MMs right anterior adenopahty, firm mass, immobile Respiratory: no wheezing, no rales, clear to auscultation bilateral Cardiovascular: RRR, no significant murmur Gastrointestinal: non-tender, no distention, positive bowel sounds Musculoskeletal: no edema, pulses present Neurological: non-focal, moves all 4 limbs Psychiatric: normal affect, A&O x 3 Skin: no rash, normal turgor <Riana Hodges - Last Filed: 04/05/18 08:44> Dx/Plan (1) Near syncope Status: Acute (2) Encephalopathy Code(s): G93.40 - ENCEPHALOPATHY, UNSPECIFIED Status: Acute (3) HTN (hypertension) Code(s): I10 - ESSENTIAL (PRIMARY) HYPERTENSION Status: Chronic (4) Lymphoma Status: Chronic (5) Thrombocytopenia Code(s): D69.6 - THROMBOCYTOPENIA, UNSPECIFIED Status: Acute - Plan Plan: 87 yo F with 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 infection vs. drug intoxication vs. alzheimers dementia -b1, b12 nml -TSH 5.3, ft3/t4 nml -pt asx at this time, mild elevation, no need for intervention at this time can f/u outpt Near syncopal episdodes -orthostatics nml -no syncopal episdoes since admission Hypokalemia, resolved HTN -SBPs in 150s, appropriate for age -continue home amlodipine Thrombocytopenia -possibly secondary to chemo -no active signs of bleeding, monitor for now Hx of Lymphoma, s/p chemo -unable to finish last chemo session in November 2017 due to development of neutropenic fever Dispo: D/c to home today once pain is controlled. Pt expressed not ready to go home if pain is still intense as it is now. discussed with dr. saavedra <Riana Hodges - Last Filed: 04/05/18 08:44> (1) Encephalopathy Code(s): G93.40 - ENCEPHALOPATHY, UNSPECIFIED Status: Acute (2) Lymphoma Status: Chronic (3) HTN (hypertension) Code(s): I10 - ESSENTIAL (PRIMARY) HYPERTENSION Status: Chronic <Roberto Saavedra - Last Filed: 04/05/18 12:04> Attending Addendum - Attending Addendum Date/Time: 04/05/18 1204 I personally evaluated the patient and discussed the management with Dr. Hodges. I agree with the History, Examination, Assessment and Plan documented above with any addition or exceptions noted below. Patient doing well this morning. No further episodes of her presenting complaints. She has some neck pain that is improved with Tramadol and is likely related to her malignancy. She is medically stable for discharge today. <Roberto Saavedra - Last Filed: 04/05/18 12:04>
[2018-04-05] MEDS ORDERED: Ketorolac Tromethamine 30 MG/ML VIAL IVP SCH (11:15)
[2018-04-05 11:39] VITALS: BP 152/77; TEMP 97.8
[2018-04-05] MEDS ORDERED: Ketorolac Tromethamine 10 MG TAB PO SCH (13:00)
[2018-04-05 16:16] LABS: Folate,Hemolysate 400.2 ng/mL (Not Estab.); Hematocrit 33.5 % (34.0-46.6); RBC Folate Test Component 1195 ng/mL (>498)
--- NOTE | 2018-04-06 16:04 | EKG ---
Test Reason : Blood Pressure : / mmHG Vent. Rate : 057 BPM Atrial Rate : 057 BPM P-R Int : 164 ms QRS Dur : 072 ms QT Int : 442 ms P-R-T Axes : 059 034 041 degrees QTc Int : 430 ms Sinus bradycardia Otherwise normal ECG Confirmed by NEVA DARLING, WALT ([id number]), video effects editor DEA DOMINIQUE ([id number] on 04/06/2018 4:04:08 PM Referred By: Confirmed By:WALT HOOKS MD
== END 2018-04-05 13:09 | disposition home or self-care (01) ==
LOC: ERS 21:12 → ERHOLD 04-04 00:45 → T4-B 04-04 05:36
PROVIDERS: ADMIT Family Medicine; ATTEND Family Medicine
DX: G93.40 Encephalopathy, unspecified (principal); R55 Syncope and collapse; C85.90 Non-Hodgkin lymphoma, unspecified, unspecified site; I10 Essential (primary) hypertension; D69.6 Thrombocytopenia, unspecified; M54.2 Cervicalgia; Z85.038 Personal history of other malignant neoplasm of large intestine; Z87.891 Personal history of nicotine dependence; Z79.899 Other long term (current) drug therapy; Z91.041 Radiographic dye allergy status; Z88.8 Allergy status to other drugs, medicaments and biological substances; Z91.048 Other nonmedicinal substance allergy status; Z90.49 Acquired absence of other specified parts of digestive tract
CPT/HCPCS: 70450; 71045; 80053 ×2; 81003; 82550; 82553; 82607; 82747; 83605; 83690; 83735; 84425; 84439; 84481; 84484 ×3; 85014; 85025 ×2; 87086; 93005; 94760; 96360; 96361; 96375; 97139 ×2; 99285; G0378 ×2; G8978; G8979; G8980; 36415; 84443; J1885